=== PATIENT | male | born 1955 | race Caucasian/White ===

== ENCOUNTER 2017-11-05 10:48 | Inpatient (IN) | payer MEDICARE ==
[2017-11-05 11:14] LABS: CHLORIDE,CL 108 mEq/L (98-106); SODIUM,NA 141 mEq/L (136-145)
[2017-11-05] MEDS ORDERED: Temazepam 15 MG Cap PO PRN (13:11)
[2017-11-05] MEDS ORDERED: Acetaminophen 325 MG Tab PO PRN (13:11)
[2017-11-05] MEDS ORDERED: methylPREDNISolone Sodium Succinate 125 MG/2 ML SDV IVPUSH SCH (13:15)
[2017-11-05] MEDS: Sodium Chloride 0.9% 1,000 ML IV SCH (13:52)
[2017-11-05] MEDS: cefTRIAXone 1 GM Vial IVPUSH SCH (13:52)
[2017-11-05] MEDS: Carvedilol 3.125 MG Tab PO SCH (19:23)
[2017-11-05] MEDS: Citalopram 10 MG Tab PO SCH (19:23)
[2017-11-05] MEDS: Baclofen 10 MG Tab PO SCH (19:24)
[2017-11-06] MEDS: Sodium Chloride 0.9% 1,000 ML IV SCH ×2 (05:33→21:19)
[2017-11-06 07:22] LABS: CHLORIDE,CL 107 mEq/L (98-106); SODIUM,NA 139 mEq/L (136-145)
[2017-11-06] MEDS: Aspirin 81 MG Tab.EC PO SCH (07:31)
[2017-11-06] MEDS: atorvaSTATin 20 MG Tab PO SCH (07:31)
[2017-11-06] MEDS: Carvedilol 3.125 MG Tab PO SCH ×2 (07:31→19:46)
[2017-11-06] MEDS: Baclofen 10 MG Tab PO SCH ×2 (07:32→19:47)
[2017-11-06] MEDS: Clopidogrel 75 MG Tab PO SCH (07:32)
[2017-11-06] MEDS ORDERED: BIOTIN 300 MCG PO SCH (08:00)
--- NOTE | 2017-11-06 09:13 | PCM.PN ---
- General Info Date of Service: 11/06/17 Admission Dx/Problem (Free Text): Multiple Sclerosis Functional Status: Reports: Pain Controlled, Tolerating Diet, Ambulating - Review of Systems General: Reports: Weakness, Fatigue. Denies: Fever HEENT: Reports: No Symptoms Pulmonary: Denies: Shortness of Breath, Cough, Wheezing Cardiovascular: Denies: Chest Pain, Edema, Lightheadedness Gastrointestinal: Denies: Abdominal Pain, Nausea, Vomiting Genitourinary: Reports: No Symptoms Musculoskeletal: Reports: No Symptoms Skin: Reports: No Symptoms Neurological: Reports: Weakness Psychiatric: Reports: No Symptoms - Patient Data Vitals - Most Recent: Last Vital Signs Temp 98.7 F 11/06/17 07:24 Pulse 89 11/06/17 07:31 Resp 20 11/06/17 07:24 BP 119/57 L 11/06/17 07:24 Pulse Ox 94 L 11/06/17 07:24 Weight - Most Recent: 225 lb 12.8 oz I&O - Last 24 Hours: Intake & Output 11/05/17 11/06/17 11/06/17 22:59 06:59 14:59 Intake Total 1000 Balance 1000 Lab Results Last 24 Hours: Laboratory Results - last 24 hr 11/05/17 11/05/17 11/05/17 Range/Units 10:53 10:53 10:53 WBC 9.9 (5.0-10.0) 10^3/uL RBC 4.46 L (4.50-6.00) 10^6/uL Hgb 14.0 (14.0-18.0) g/dL Hct 41.2 (40.0-54.0) % MCV 92.4 (82.0-94.0) fL MCH 31.4 (27.0-32.0) pg MCHC 34.0 (33.0-38.0) g/dL RDW Coeff of Slava 13.4 (11.0-15.0) % Plt Count 249 (150-400) 10^3/uL Neut % (Auto) 68.5 (35-85) % Lymph % (Auto) 18.2 (10-55) % [place] % (Auto) 7.3 (0-16) % Eos % (Auto) 5.4 H (0-5) % Baso % (Auto) 0.6 (0-3) % Neut # (Auto) 6.80 (1.80-7.00) 10^3/uL Lymph # (Auto) 1.81 (1.00-4.80) 10^3/uL [place] # (Auto) 0.72 (0.00-0.80) 10^3/uL Eos # (Auto) 0.54 H (0.00-0.45) 10^3/uL Baso # (Auto) 0.06 10^3/uL ESR 16 H (0-15) mm/hr Sodium 141 (136-145) mEq/L Potassium 3.6 (3.5-5.0) mEq/L Chloride 108 H (98-106) mEq/L Carbon Dioxide 26 (21-32) mmol/L BUN 19 H (7-18) mg/dL Creatinine 0.9 (0.7-1.3) mg/dL Est Cr Clr Drug Dosing TNP Estimated GFR (MDRD) > 60 (>=60) mL/min Glucose 108 H (75-99) mg/dL Calcium 9.0 (8.4-10.1) mg/dL Creatine Kinase 50 (35-232) U/L Urine Color Yellow (YELLOW) Urine Appearance Clear (CLEAR) Urine pH 5.5 (4.5-8.0) Ur Specific [place] >= 1.030 H (1.003-1.020) Urine Protein Negative (NEGATIVE) mg/dL Urine Glucose (UA) Negative (NEGATIVE) mg/dL Urine Ketones Negative (NEGATIVE) mg/dL Urine Occult Blood Trace-lysed H (NEGATIVE) Urine Nitrite Negative (NEGATIVE) Urine Bilirubin Negative (NEGATIVE) Urine Urobilinogen 0.2 (0.2-1.0) EU/dL Ur Leukocyte Esterase Trace H (NEGATIVE) Urine RBC 0-5 (0-5) /HPF Urine WBC 0-5 (0-5) /HPF Ur Renal Epithelial Cell Occasional H (NOT SEEN) /HPF Urine Bacteria Occasional H (NOT SEEN) /HPF Urine Mucus Occasional H (NOT SEEN) /HPF 11/06/17 11/06/17 Range/Units 07:00 07:00 WBC 15.8 H (5.0-10.0) 10^3/uL RBC 4.21 L (4.50-6.00) 10^6/uL Hgb 13.2 L (14.0-18.0) g/dL Hct 38.8 L (40.0-54.0) % MCV 92.2 (82.0-94.0) fL MCH 31.4 (27.0-32.0) pg MCHC 34.0 (33.0-38.0) g/dL RDW Coeff of Slava 13.0 (11.0-15.0) % Plt Count 259 (150-400) 10^3/uL Neut % (Auto) 92.7 H (35-85) % Lymph % (Auto) 6.4 L (10-55) % [place] % (Auto) 0.8 (0-16) % Eos % (Auto) 0 (0-5) % Baso % (Auto) 0.1 (0-3) % Neut # (Auto) 14.69 H (1.80-7.00) 10^3/uL Lymph # (Auto) 1.01 (1.00-4.80) 10^3/uL [place] # (Auto) 0.13 (0.00-0.80) 10^3/uL Eos # (Auto) 0.00 (0.00-0.45) 10^3/uL Baso # (Auto) 0.01 10^3/uL ESR (0-15) mm/hr Sodium 139 (136-145) mEq/L Potassium 3.8 (3.5-5.0) mEq/L Chloride 107 H (98-106) mEq/L Carbon Dioxide 23 (21-32) mmol/L BUN 14 (7-18) mg/dL Creatinine 0.9 (0.7-1.3) mg/dL Est Cr Clr Drug Dosing 95.80 Estimated GFR (MDRD) > 60 (>=60) mL/min Glucose 173 H D (75-99) mg/dL Calcium 8.8 (8.4-10.1) mg/dL Creatine Kinase (35-232) U/L Urine Color (YELLOW) Urine Appearance (CLEAR) Urine pH (4.5-8.0) Ur Specific [place] (1.003-1.020) Urine Protein (NEGATIVE) mg/dL Urine Glucose (UA) (NEGATIVE) mg/dL Urine Ketones (NEGATIVE) mg/dL Urine Occult Blood (NEGATIVE) Urine Nitrite (NEGATIVE) Urine Bilirubin (NEGATIVE) Urine Urobilinogen (0.2-1.0) EU/dL Ur Leukocyte Esterase (NEGATIVE) Urine RBC (0-5) /HPF Urine WBC (0-5) /HPF Ur Renal Epithelial Cell (NOT SEEN) /HPF Urine Bacteria (NOT SEEN) /HPF Urine Mucus (NOT SEEN) /HPF Med Orders - Current: Current Medications Acetaminophen (Tylenol) 650 mg PO Q4H PRN PRN Reason: Pain (Mild 1-3)/fever Aspirin (Halfprin) 81 mg PO DAILY [facility] Last Admin: 11/06/17 07:31 Dose: 81 mg Atorvastatin Calcium (Lipitor) 80 mg PO DAILY [facility] Last Admin: 11/06/17 07:31 Dose: 80 mg Baclofen (Lioresal) 20 mg PO BID [facility] Last Admin: 11/06/17 07:32 Dose: 20 mg Carvedilol (Coreg) 3.125 mg PO BID [facility] Last Admin: 11/06/17 07:31 Dose: 3.125 mg Ceftriaxone Sodium (Rocephin) 1 gm IVPUSH Q24H [facility] Last Admin: 11/05/17 13:52 Dose: 1 gm Citalopram Hydrobromide (Celexa) 40 mg PO BEDTIME [facility] Last Admin: 11/05/17 19:23 Dose: 40 mg Clopidogrel Bisulfate (Plavix) 75 mg PO DAILY [facility] Last Admin: 11/06/17 07:32 Dose: 75 mg Sodium Chloride (Normal Saline) 1,000 mls @ 75 mls/hr IV ASDIRECTED [facility] Last Admin: 11/06/17 05:33 Dose: 75 mls/hr Methylprednisolone Sodium Succinate 1,000 mg/ Sodium Chloride 266 mls @ 125 mls /hr IV DAILY@1000 [facility] Stop: 11/07/17 15:01 Last Admin: 11/05/17 15:12 Dose: 125 mls/hr Non-Formulary Medication (Biotin [Biotin]) 300 mcg PO DAILY [facility] Temazepam (Restoril) 15 mg PO BEDTIME PRN PRN Reason: Sleep Discontinued Medications Methylprednisolone Sodium Succinate (Solu-Medrol) 1,000 mg IVPUSH Q24H [facility] Stop: 11/07/17 13:16 Last Admin: 11/05/17 14:57 Dose: Not Given - Exam General: Alert, Oriented HEENT: Mucous Membr. Moist/[place] Neck: Supple Lungs: Clear to Auscultation, Normal Respiratory Effort Cardiovascular: Regular Rate, Regular Rhythm GI/Abdominal Exam: Normal Bowel Sounds, Soft, Non-Tender Skin: Warm, Dry Neurological: No New Focal Deficit - Problem List & Annotations (1) Multiple sclerosis SNOMED Code(s): 93727395 Code(s): G35 - MULTIPLE SCLEROSIS Status: Acute Priority: High Current Visit: Yes - Problem List Review Problem List Initiated/Reviewed/Updated: Yes - Assessment Assessment:: Exacerbation of MS - Plan Plan:: Patient states is feeling much better after steroids. "able to move his arms and legs better now". Has not been on any meds for his MS for many years. States took for about 5 years and they did not feel they were helping him all that well. He is not interested really at this point of seeing neurology again for different options, states do not feel they were that beneficial and were very costly. Denies any other concerns. Labs on admit were negative, UA negative, except did show he was dehydrated. Has done well with IV fluids. Will continue with high dose steroids. IV fluids. PT eval today, encourage ambulation. Possible discharge in am.
[2017-11-06] MEDS: cefTRIAXone 1 GM Vial IVPUSH SCH (13:28)
[2017-11-06] MEDS: Citalopram 10 MG Tab PO SCH (19:45)
[2017-11-07] MEDS: Aspirin 81 MG Tab.EC PO SCH (07:31)
[2017-11-07] MEDS: Carvedilol 3.125 MG Tab PO SCH ×2 (07:31→20:22)
[2017-11-07] MEDS: atorvaSTATin 20 MG Tab PO SCH (07:32)
[2017-11-07] MEDS: Baclofen 10 MG Tab PO SCH ×2 (07:32→20:22)
[2017-11-07] MEDS: Clopidogrel 75 MG Tab PO SCH (07:33)
[2017-11-07] MEDS ORDERED: FLU Vacc QS 2017-18 (36mos UP)/PF 60 MCG/0.5 ML Syringe IM ONE (10:43)
--- NOTE | 2017-11-07 11:10 | PN ---
DATE: 11/07/2017 S: Mr. Win was admitted on Friday by Steven for an exacerbation of his MS. He has had 2 separate days of IV Solu-Medrol with wonderful results. He is much stronger. He is able to ambulate now, voiding and stooling without problem. There was a question of UTI and admit as well. Unfortunately, urine culture was never accomplished. His vitals have been stable since admission. He has been afebrile. O: GENERAL: He is pleasant and cooperative. He is vocalizing nicely. is present for the exam. HEENT: Grossly benign. NECK: Neck veins are flat. LUNGS: Sounds appear clear throughout. CARDIAC: Tones are regular. ABDOMEN: Soft, nontender. No peripheral edema is seen. ASSESSMENT: 1. EXACERBATION OF MS. 2. POSSIBLE URINARY TRACT INFECTION. P: Clinically, he looks very good, I am going to take him off IV fluids. We will continue him on Rocephin, as unfortunately, we did not get a urine culture and does state that a lot of times when he does get even a mild illness such as a bladder infection, he will have a marked flare up of his MS. We are contemplating swing bed tomorrow to help continue with strengthening and we will likely continue with IV Rocephin for a few more days until is comfortable with him at home. Family is present and they agree with the plan. KELECHI/ESTUARDO /[id number]
[2017-11-07] MEDS: cefTRIAXone 1 GM Vial IVPUSH SCH (12:59)
[2017-11-07] MEDS: Citalopram 10 MG Tab PO SCH (20:22)
[2017-11-08] MEDS: atorvaSTATin 20 MG Tab PO SCH (07:37)
[2017-11-08] MEDS: Baclofen 10 MG Tab PO SCH (07:38)
[2017-11-08] MEDS: Carvedilol 3.125 MG Tab PO SCH (07:38)
[2017-11-08] MEDS: Aspirin 81 MG Tab.EC PO SCH (07:38)
[2017-11-08] MEDS: Clopidogrel 75 MG Tab PO SCH (07:38)
[2017-11-08 11:40] VITALS: BP 114/60
--- NOTE | 2017-11-08 12:55 | PCM.DCSUM1 ---
Discharge Summary - Hospital Course HPI Initial Comments: Adrian is a 62 year old male who was admitted to the hospital from the clinic on 11/06/2017 for worsening of his multiple sclerosis. Prior to admission, he had fallen at home. At time of admission he was unable to ambulate or move his lower extremities. He was also having some urinary incontinence and felt he maybe had a UTI. He reported that whenever he has illness he has worsening of his MS. UA was positive, but unfortunately urine culture was not completed. Patient has improved on IV Rocephin. He was admitted for worsening of his MS and treated with 1G solumedrol x 3 doses. His weakness has improved greatly. He will be discharged to [facility] for continued physical therapy and strengthening. At time of discharge, he feels he is back to his baseline. He has been up ambulating in the halls. Reports he is feeling much better, but that he would still benefit from some continued therapy. - Discharge Data Discharge Date: 11/08/17 Discharge Disposition: DC/Tfer W/I Hosp To [place] [id number] Condition: Good - Discharge Diagnosis/Problem(s) (1) Multiple sclerosis SNOMED Code(s): 17367612 ICD Code: G35 - MULTIPLE SCLEROSIS Status: Chronic Priority: High - Patient Summary/Data Consults: Consultations 11/05/17 13:11 PT Evaluation and Treatment [CONS] Routine - Patient Instructions Diet: Regular Diet as Tolerated Activity: As Tolerated - Discharge Plan Home Medications: Home Meds Baclofen [Lioresal] 20 mg PO BID 12/29/15 [History] Aspirin [Halfprin] 81 mg PO DAILY 01/15/16 [History] Carvedilol [Coreg] 3.125 mg PO BID 01/15/16 [History] Clopidogrel [Plavix] 75 mg PO DAILY 01/15/16 [History] Escitalopram [Lexapro] 20 mg PO BEDTIME 01/15/16 [History] atorvaSTATin Calcium [Atorvastatin Calcium] 80 mg PO BEDTIME 01/15/16 [History] Biotin 300 mcg PO DAILY 11/05/17 [History] Cholecalciferol (Vitamin D3) [Vitamin D3] 5,000 units PO BEDTIME 11/05/17 [ History] Patient Handouts: Multiple Sclerosis - General Info Date of Service: 11/08/17 Admission Dx/Problem (Free Text: Multiple Sclerosis Subjective Update: Patient reports he is feeling much better after the steroids and antibiotics. He has been up ambulating. Does feel he is still a little weak and would benefit from more physical therapy. Did have an episode of nausea, diarrhea, and vomiting last evening. He feels this was related to intake of "red dye in a valent[employer] candy." He reports he is allergic to red dyes. Reports he is feeling better this morning. Functional Status: Reports: Pain Controlled, Tolerating Diet, Ambulating, Urinating. Denies: New Symptoms - Review of Systems General: Reports: Weakness. Denies: Fever, Fatigue, Chills HEENT: Reports: No Symptoms Pulmonary: Reports: No Symptoms. Denies: Shortness of Breath Cardiovascular: Reports: No Symptoms. Denies: Chest Pain Gastrointestinal: Reports: No Symptoms. Denies: Abdominal Pain, Diarrhea, Nausea, Vomiting Genitourinary: Reports: Incontinence Musculoskeletal: Reports: No Symptoms. Denies: Leg Pain Skin: Reports: No Symptoms Neurological: Reports: No Symptoms Psychiatric: Reports: No Symptoms - Patient Data Vitals - Most Recent: Last Vital Signs Temp 97.1 F 11/08/17 11:38 Pulse 68 11/08/17 11:38 Resp 17 11/08/17 11:38 BP 114/60 11/08/17 11:38 Pulse Ox 98 11/08/17 11:38 Weight - Most Recent: 225 lb 12.8 oz Lab Results - Last 24 hrs: Laboratory Results - last 24 hr 11/08/17 11/08/17 Range/Units 07:10 07:25 WBC 20.9 H* (5.0-10.0) 10^3/uL RBC 3.93 L (4.50-6.00) 10^6/uL Hgb 12.5 L (14.0-18.0) g/dL Hct 38.1 L (40.0-54.0) % MCV 96.9 H (82.0-94.0) fL MCH 31.8 (27.0-32.0) pg MCHC 32.8 L (33.0-38.0) g/dL RDW Coeff of Slava 13.4 (11.0-15.0) % Plt Count 270 (150-400) 10^3/uL Add Manual Diff Yes Neutrophils % (Manual) 94 H (35-85) % Lymphocytes % (Manual) 3 L (21-55) % Monocytes % (Manual) 3 (2-12) % Absolute Neutrophils 19.65 H (1.80-7.00) 10^3/uL Lymphocytes # (Manual) 0.63 L (1.00-4.80) 10^3/uL Monocytes # (Manual) 0.63 (0.00-0.80) 10^3/uL C-Reactive Protein < 0.2 L (0.2-0.8) mg/dL Med Orders - Current: Current Medications Acetaminophen (Tylenol) 650 mg PO Q4H PRN PRN Reason: Pain (Mild 1-3)/fever Aspirin (Halfprin) 81 mg PO DAILY [facility] Last Admin: 11/08/17 07:38 Dose: 81 mg Atorvastatin Calcium (Lipitor) 80 mg PO DAILY [facility] Last Admin: 11/08/17 07:37 Dose: 80 mg Baclofen (Lioresal) 20 mg PO BID [facility] Last Admin: 11/08/17 07:38 Dose: 20 mg Carvedilol (Coreg) 3.125 mg PO BID [facility] Last Admin: 11/08/17 07:38 Dose: 3.125 mg Ceftriaxone Sodium (Rocephin) 1 gm IVPUSH Q24H [facility] Last Admin: 11/07/17 12:59 Dose: 1 gm Citalopram Hydrobromide (Celexa) 40 mg PO BEDTIME [facility] Last Admin: 11/07/17 20:22 Dose: 40 mg Clopidogrel Bisulfate (Plavix) 75 mg PO DAILY [facility] Last Admin: 11/08/17 07:38 Dose: 75 mg Non-Formulary Medication (Biotin [Biotin]) 300 mcg PO DAILY [facility] Temazepam (Restoril) 15 mg PO BEDTIME PRN PRN Reason: Sleep Discontinued Medications Sodium Chloride (Normal Saline) 1,000 mls @ 75 mls/hr IV ASDIRECTED [facility] Last Admin: 11/06/17 21:19 Dose: 75 mls/hr Methylprednisolone Sodium Succinate 1,000 mg/ Sodium Chloride 266 mls @ 125 mls /hr IV DAILY@1000 [facility] Stop: 11/07/17 15:01 Last Admin: 11/07/17 09:49 Dose: 125 mls/hr Influenza Virus Vaccine (Fluzone Quad 5870-1941) 60 mcg IM .ONCE ONE Stop: 11/07/17 10:44 Last Admin: 11/07/17 11:16 Dose: 60 mcg Methylprednisolone Sodium Succinate (Solu-Medrol) 1,000 mg IVPUSH Q24H [facility] Stop: 11/07/17 13:16 Last Admin: 11/05/17 14:57 Dose: Not Given - Exam General: Reports: Alert, Oriented, No Acute Distress Neck: Reports: Supple Lungs: Reports: Clear to Auscultation, Normal Respiratory Effort Cardiovascular: Reports: Regular Rate, Regular Rhythm Extremities: Normal Inspection, Normal Range of Motion, Non-Tender, No Pedal Edema, Normal Capillary Refill Neurological: Reports: No New Focal Deficit Psy/Mental Status: Reports: Alert, Normal Affect, Normal Mood *Q Meaningful Use (DIS) - VTE *Q VTE Criteria *Q: - Stroke *Q Stroke Criteria *Q: - AMI *Q AMI Criteria *Q:
== END 2017-11-08 12:54 | disposition swing bed (61) | DRG 59 ==
LOC: CC.FCMC 10:48 → CC.MS 10:48 → UNDOADMIN 12:06 → CC.MS 13:12
PROVIDERS: ADMIT Physician Assistant Medical; ATTEND Family Medicine
PROC: 3E0234Z Introduction of Serum, Toxoid and Vaccine into Muscle, Percutaneous Approach (ICD-10-PCS; principal; 2017-11-07)
DX: G35 Multiple sclerosis (principal); N39.0 Urinary tract infection, site not specified; R53.1 Weakness; F17.210 Nicotine dependence, cigarettes, uncomplicated; N40.0 Benign prostatic hyperplasia without lower urinary tract symptoms; I25.10 Atherosclerotic heart disease of native coronary artery without angina pectoris; Z98.61 Coronary angioplasty status; Z79.82 Long term (current) use of aspirin; Z79.899 Other long term (current) drug therapy; W19.XXXA Unspecified fall, initial encounter; Z23 Encounter for immunization
CPT/HCPCS: 36415; 80048; 81001; 82550; 85025; 85651; 86140; 90686; 97110-GP; 97116-GP; 97161-GP; 97530-GP; A9270-GY; G0008; J0696; J2930; J7030; J7050

== ENCOUNTER 2017-11-08 13:14 | Inpatient (IN) | payer MEDICARE ==
[2017-11-08] MEDS ORDERED: Temazepam 15 MG Cap PO PRN (14:16)
[2017-11-08] MEDS ORDERED: Acetaminophen 325 MG Tab PO PRN (14:16)
[2017-11-08] MEDS: Citalopram 10 MG Tab PO SCH (20:19)
[2017-11-08] MEDS: Carvedilol 3.125 MG Tab PO SCH (20:19)
[2017-11-08] MEDS: Baclofen 10 MG Tab PO SCH (20:19)
[2017-11-09] MEDS: atorvaSTATin 20 MG Tab PO SCH (07:53)
[2017-11-09] MEDS: Clopidogrel 75 MG Tab PO SCH (07:53)
[2017-11-09] MEDS: Carvedilol 3.125 MG Tab PO SCH ×2 (07:53→19:30)
[2017-11-09] MEDS: Baclofen 10 MG Tab PO SCH ×2 (07:53→19:30)
[2017-11-09] MEDS: Aspirin 81 MG Tab.EC PO SCH (07:53)
[2017-11-09] MEDS ORDERED: BIOTIN 300 MCG PO SCH (08:00)
[2017-11-09] MEDS: cefTRIAXone 1 GM Vial IVPUSH SCH (13:11)
[2017-11-09] MEDS: Citalopram 10 MG Tab PO SCH (19:30)
[2017-11-10 07:16] VITALS: BP 127/81
[2017-11-10] MEDS: Baclofen 10 MG Tab PO SCH (07:45)
[2017-11-10] MEDS: atorvaSTATin 20 MG Tab PO SCH (07:46)
[2017-11-10 07:47] LABS: CHLORIDE,CL 106 mEq/L (98-106); SODIUM,NA 139 mEq/L (136-145)
[2017-11-10] MEDS: Aspirin 81 MG Tab.EC PO SCH (07:47)
[2017-11-10] MEDS: Clopidogrel 75 MG Tab PO SCH (07:47)
[2017-11-10] MEDS: Carvedilol 3.125 MG Tab PO SCH (07:48)
[2017-11-10] MEDS: cefTRIAXone 1 GM Vial IVPUSH SCH (13:29)
--- NOTE | 2017-11-10 21:54 | PCM.DCSUM1 ---
Discharge Summary - Hospital Course Free Text/Narrative:: Patient presented to clinic with increased weakness and MS flare. Patient was unable to ambulate or move his lower extremities. He has not been on meds for his MS for many years as patient reports they did not provide much benefit. He has had increased issues when dealing with infections, felt he may have a UTI on admit. Unfortunately urine culture was not completed but was treated with Rocephin at time of acute admit. Was given 3 dose of IV dose IV steroids and had improvement of the weakness and movement. Transferred to swing bed for ongoing physical therapy for his weakness and Rocephin for UTI. - Discharge Data Discharge Date: 11/10/17 Discharge Disposition: Home, W Home Health Agency 06 Condition: Fair - Patient Summary/Data Complications: none Consults: Consultations 11/08/17 14:16 PT Evaluation and Treatment [CONS] Routine Hospital Course: Patient was admitted to swing bed for ongoing physical therapy due to weakness. MS has improved due to steroids. Patient is up and ambulating short distances , feels he is much improved. UTI has been covered with IV Rocephin. Labs stable. Will discharge home with to provide assistance as needed. - Patient Instructions Diet: Usual Diet as Tolerated Activity: As Tolerated - Discharge Plan Home Medications: Home Meds Baclofen [Lioresal] 20 mg PO BID 12/29/15 [History] Aspirin [Halfprin] 81 mg PO DAILY 01/15/16 [History] Carvedilol [Coreg] 3.125 mg PO BID 01/15/16 [History] Clopidogrel [Plavix] 75 mg PO DAILY 01/15/16 [History] Escitalopram [Lexapro] 20 mg PO BEDTIME 01/15/16 [History] atorvaSTATin Calcium [Atorvastatin Calcium] 80 mg PO BEDTIME 01/15/16 [History] Biotin 300 mcg PO DAILY 11/05/17 [History] Cholecalciferol (Vitamin D3) [Vitamin D3] 5,000 units PO BEDTIME 11/05/17 [ History] Referrals: Arnulfo Manzano MD [Primary Care Provider] - (Follow up in [address] Manzano) - Discharge Summary/Plan Comment DC Time >30 min.: No Discharge Summary/Plan Comment: Discharge home. Follow up with Dr. Manzano in 2 weeks. - General Info Date of Service: 11/10/17 Admission Dx/Problem (Free Text: Multiple sclerosis Functional Status: Reports: Pain Controlled, Tolerating Diet, Ambulating - Review of Systems General: Reports: Weakness. Denies: Fever, Fatigue HEENT: Reports: No Symptoms Pulmonary: Denies: Shortness of Breath, Cough, Sputum Cardiovascular: Denies: Chest Pain, Edema, Lightheadedness Gastrointestinal: Denies: Abdominal Pain, Nausea, Vomiting Genitourinary: Reports: No Symptoms Musculoskeletal: Reports: No Symptoms Skin: Reports: No Symptoms Neurological: Reports: Weakness - Patient Data Vitals - Most Recent: Last Vital Signs Temp 97.3 F 11/10/17 07:16 Pulse 62 11/10/17 07:48 Resp 16 11/10/17 07:16 BP 127/81 11/10/17 07:48 Pulse Ox 97 11/10/17 07:16 Weight - Most Recent: 241 lb Lab Results - Last 24 hrs: Laboratory Results - last 24 hr 11/10/17 11/10/17 Range/Units 07:00 07:00 WBC 14.1 H (5.0-10.0) 10^3/uL RBC 4.44 L (4.50-6.00) 10^6/uL Hgb 13.9 L (14.0-18.0) g/dL Hct 42.2 (40.0-54.0) % MCV 95.0 H (82.0-94.0) fL MCH 31.3 (27.0-32.0) pg MCHC 32.9 L (33.0-38.0) g/dL RDW Coeff of [place]ava 13.4 (11.0-15.0) % Plt Count 265 (150-400) 10^3/uL Neut % (Auto) 68.6 (35-85) % Lymph % (Auto) 18.2 (10-55) % [place] % (Auto) 8.8 (0-16) % Eos % (Auto) 4.3 (0-5) % Baso % (Auto) 0.1 (0-3) % Neut # (Auto) 9.64 H (1.80-7.00) 10^3/uL Lymph # (Auto) 2.56 (1.00-4.80) 10^3/uL [place] # (Auto) 1.23 H (0.00-0.80) 10^3/uL Eos # (Auto) 0.61 H (0.00-0.45) 10^3/uL Baso # (Auto) 0.01 10^3/uL Sodium 139 (136-145) mEq/L Potassium 3.3 L (3.5-5.0) mEq/L Chloride 106 (98-106) mEq/L Carbon Dioxide 28 (21-32) mmol/L BUN 19 H (7-18) mg/dL Creatinine 0.9 (0.7-1.3) mg/dL Est Cr Clr Drug Dosing 95.80 mL/min Estimated GFR (MDRD) > 60 (>=60) mL/min Glucose 88 D (75-99) mg/dL Calcium 8.5 (8.4-10.1) mg/dL Med Orders - Current: Current Medications Discontinued Medications Acetaminophen (Tylenol) 650 mg PO Q4H PRN PRN Reason: Pain (Mild 1-3)/fever Aspirin (Halfprin) 81 mg PO DAILY [facility] Last Admin: 11/10/17 07:47 Dose: 81 mg Atorvastatin Calcium (Lipitor) 80 mg PO DAILY [facility] Last Admin: 11/10/17 07:46 Dose: 80 mg Baclofen (Lioresal) 20 mg PO BID [facility] Last Admin: 11/10/17 07:45 Dose: 20 mg Carvedilol (Coreg) 3.125 mg PO BID [facility] Last Admin: 11/10/17 07:48 Dose: 3.125 mg Ceftriaxone Sodium (Rocephin) 1 gm IVPUSH Q24H [facility] Last Admin: 11/10/17 13:29 Dose: 1 gm Citalopram Hydrobromide (Celexa) 40 mg PO BEDTIME [facility] Last Admin: 11/09/17 19:30 Dose: 40 mg Clopidogrel Bisulfate (Plavix) 75 mg PO DAILY [facility] Last Admin: 11/10/17 07:47 Dose: 75 mg Non-Formulary Medication (Biotin [Biotin]) 300 mcg PO DAILY [facility] Temazepam (Restoril) 15 mg PO BEDTIME PRN PRN Reason: Sleep - Exam General: Reports: Alert, Oriented HEENT: Reports: Mucous Membr. Moist/[place] Neck: Reports: Supple Lungs: Reports: Clear to Auscultation, Normal Respiratory Effort Cardiovascular: Reports: Regular Rate, Regular Rhythm GI/Abdominal Exam: Normal Bowel Sounds, Soft, Non-Tender Extremities: Normal Inspection, No Pedal Edema Skin: Reports: Warm, Dry Neurological: Reports: No New Focal Deficit *Q Meaningful Use (DIS) - VTE *Q VTE Criteria *Q: - Stroke *Q Stroke Criteria *Q: - AMI *Q AMI Criteria *Q:
== END 2017-11-10 17:15 | disposition home health service (06) | DRG 948 ==
LOC: CC.MS 13:14 → UNDOADMIN 13:14 → CC.MS 14:16
PROVIDERS: ADMIT Nurse Practitioner Family; ATTEND Family Medicine
DX: R53.1 Weakness (principal); N39.0 Urinary tract infection, site not specified; G35 Multiple sclerosis; R32 Unspecified urinary incontinence; N40.0 Benign prostatic hyperplasia without lower urinary tract symptoms; I25.10 Atherosclerotic heart disease of native coronary artery without angina pectoris; Z98.61 Coronary angioplasty status; F17.210 Nicotine dependence, cigarettes, uncomplicated; Z79.82 Long term (current) use of aspirin; Z79.899 Other long term (current) drug therapy
CPT/HCPCS: 36415; 80048; 85025; 97110-GP; A9270-GY; J0696

== ENCOUNTER 2018-02-16 17:10 | Emergency (ER) | payer MEDICARE ==
[2018-02-16 17:24] VITALS: BP 124/83
[2018-02-16 17:53] LABS: CHLORIDE,CL 105 mEq/L (98-106); SODIUM,NA 139 mEq/L (136-145)
--- NOTE | 2018-02-16 17:54 | EDM.PDOC ---
ED HPI GENERAL MEDICAL PROBLEM - General Chief Complaint: General Stated Complaint: WEAKNESS Time Seen by Provider: 02/16/18 17:35 Source of Information: Reports: Patient, Family History Limitations: Reports: No Limitations - History of Present Illness INITIAL COMMENTS - FREE TEXT/NARRATIVE: Adrian is a 62 year old male with PMH of multiple sclerosis and HTN who presents to the ED with c/o generalized weakness, headache, and dizziness. He reports he did fall last week. Denies hitting his head. He reports that he has had the headache for about a week now. Reports the dizziness seemed to worsen this afternoon. He reports that he just overall isn't feeling well. He did report that on the drive in he got nauseated and did have small emesis x1. He denies any headache or nausea at time of presentation. Denies any chest pain, cough, shortness of breath, dysuria, abdominal pain, constpation, diarrhea, fever, chills, vertigo, confusion. He saw Dr. Manzano on 02/12 to be checked for UTI, as his MS often worsens when he is ill. UA at that time was negative. He does report that he has issues with emptying his bladder. He reports that it feels like he is having an exacerbation of his MS. Reports he normally responds well to steroids when this happens. - Related Data Allergies Allergy/AdvReac Type Severity Reaction Status Date / Time red dye Allergy Change Verified 02/16/18 17:25 Mental Status Home Meds: Home Meds Baclofen [Lioresal] 20 mg PO BID 12/29/15 [History] Aspirin [Halfprin] 81 mg PO DAILY 01/15/16 [History] Carvedilol [Coreg] 3.125 mg PO BID 01/15/16 [History] Clopidogrel [Plavix] 75 mg PO DAILY 01/15/16 [History] Escitalopram [Lexapro] 20 mg PO BEDTIME 01/15/16 [History] atorvaSTATin Calcium [Atorvastatin Calcium] 80 mg PO BEDTIME 01/15/16 [History] Biotin 300 mcg PO DAILY 11/05/17 [History] Cholecalciferol (Vitamin D3) [Vitamin D3] 5,000 units PO BEDTIME 11/05/17 [ History] Acetaminophen [Tylenol Extra Strength] 1,000 mg PO ASDIRECTED PRN 02/16/18 [ History] Prednisone [IMW: predniSONE] 40 mg PO WITHBREAKFAST 5 Days #10 tab 02/16/18 [Rx] Past Medical History HEENT History: Reports: Impaired Vision Other HEENT History: GLASSES Cardiovascular History: Reports: [place], Stents Respiratory History: Reports: None Other Musculoskeletal History: MS Neurological History: Reports: MS Psychiatric History: Reports: Depression - Past Surgical History GI Surgical History: Reports: Hernia, Inguinal Male Surgical History: Reports: Vasectomy Social & Family History - Tobacco Use Smoking Status *Q: Former Smoker Years of Tobacco use: 20 Packs/Tins Daily: 1 Used Tobacco, but Quit: Yes Month/Year Tobacco Last Used: 09/2017 - Caffeine Use Caffeine Use: Reports: Soda - Recreational Drug Use Recreational Drug Use: No ED ROS GENERAL - Review of Systems Review Of Systems: See Below Constitutional: Reports: Weakness, Fatigue, Decreased Appetite. Denies: Fever Respiratory: Denies: Shortness of Breath, Pleuritic Chest Pain, Cough, Sputum Cardiovascular: Reports: Lightheadedness. Denies: Chest Pain, Dyspnea on Exertion, Syncope Endocrine: Reports: Fatigue GI/Abdominal: Reports: Decreased Appetite, Nausea, Vomiting. Denies: Abdominal Pain, Constipation, Diarrhea, Hematemesis, Hematochezia, Melena : Reports: Frequency, Incontinence. Denies: Dysuria, Urgency Skin: Reports: No Symptoms Neurological: Reports: Dizziness, Headache, Pre-Existing Deficit, Difficulty Walking, Weakness. Denies: Confusion, Numbness, Tingling Psychiatric: Reports: Depression ED EXAM, GENERAL - Physical Exam Exam: See Below Exam Limited By: No Limitations General Appearance: Alert, WD/WN, No Apparent Distress Eye Exam: Bilateral Eye: EOMI, PERRL Head: Atraumatic, Normocephalic Neck: Normal Inspection, Supple, Non-Tender, Full Range of Motion Respiratory/Chest: No Respiratory Distress, Lungs Clear, Normal Breath Sounds, No Accessory Muscle Use, Chest Non-Tender Cardiovascular: Normal Peripheral Pulses, Regular Rate, Rhythm, No Edema, No Gallop, No JVD, No Murmur, No Rub GI/Abdominal: Normal Bowel Sounds, Soft, Non-Tender, No Organomegaly, No Distention, No Abnormal Bruit, No Mass Back Exam: Normal Inspection, Full Range of Motion. No: CVA Tenderness (L), CVA Tenderness (R) Extremities: Normal Inspection, Normal Range of Motion, Non-Tender, No Pedal Edema, Normal Capillary Refill, Other (severe ataxia to BLE & BUE) Neurological: Alert, Oriented, CN II-XII Intact, Normal Cognition, Abnormal Gait , Abnormal Reflexes, Sensory/Motor Deficit, Other (slurred speech) Psychiatric: Depressed Mood Skin Exam: Warm, Dry, Intact, Normal Color, No Rash Lymphatic: No Adenopathy Course - Vital Signs Last Recorded V/S: Last Vital Signs Temp 97.4 F 02/16/18 17:13 Pulse 77 02/16/18 17:13 Resp 16 02/16/18 17:13 BP 124/83 02/16/18 17:13 Pulse Ox 93 L 02/16/18 17:13 - Orders/Labs/Meds Orders: Active Orders 24 hr Category Date Time Status UA W/MICROSCOPIC [URIN] Stat Lab 02/16/18 17:27 Ordered Sodium Chloride 0.9% [Normal Saline] 1,000 ml Med 02/16/18 17:54 Active IV .BOLUS Sodium Chloride 0.9% [Saline Flush] Med 02/16/18 17:57 Active 10 ml FLUSH ASDIRECTED PRN methylPREDNISolone Sod Succ [Solu-MEDROL] Med 02/16/18 18:00 Active 125 mg IVPUSH STAT Saline Lock Insert [OM.PC] Routine Oth 02/16/18 17:57 Ordered Medication Orders Sodium Chloride (Normal Saline) 1,000 mls @ 999 mls/hr IV .BOLUS ONE Stop: 02/16/18 18:54 Methylprednisolone Sodium Succinate (Solu-Medrol) 125 mg IVPUSH STAT DANIEL Sodium Chloride (Saline Flush) 10 ml FLUSH ASDIRECTED PRN PRN Reason: Keep Vein Open Labs: Laboratory Tests 02/16/18 02/16/18 02/16/18 Range/Units 17:27 17:30 17:30 WBC 12.0 H (5.0-10.0) 10^3/uL RBC 4.61 (4.50-6.00) 10^6/uL Hgb 14.5 (14.0-18.0) g/dL Hct 43.5 (40.0-54.0) % MCV 94.4 H (82.0-94.0) fL MCH 31.5 (27.0-32.0) pg MCHC 33.3 (33.0-38.0) g/dL RDW Coeff of [place]ava 13.2 (11.0-15.0) % Plt Count 221 (150-400) 10^3/uL Neut % (Auto) 84.0 (35-85) % Lymph % (Auto) 5.9 L (10-55) % [place] % (Auto) 7.7 (0-16) % Eos % (Auto) 2.2 (0-5) % Baso % (Auto) 0.2 (0-3) % Neut # (Auto) 10.05 H (1.80-7.00) 10^3/uL Lymph # (Auto) 0.71 L (1.00-4.80) 10^3/uL [place] # (Auto) 0.92 H (0.00-0.80) 10^3/uL Eos # (Auto) 0.26 (0.00-0.45) 10^3/uL Baso # (Auto) 0.02 10^3/uL Sodium (136-145) mEq/L Potassium (3.5-5.0) mEq/L Chloride (98-106) mEq/L Carbon Dioxide (21-32) mmol/L BUN (7-18) mg/dL Creatinine (0.7-1.3) mg/dL Est Cr Clr Drug Dosing mL/min Estimated GFR (MDRD) (>=60) mL/min Glucose (75-99) mg/dL Calcium (8.4-10.1) mg/dL Total Bilirubin (0.0-1.0) mg/dL AST (15-37) U/L ALT (12-78) U/L Alkaline Phosphatase (46-116) U/L Creatine Kinase (35-232) U/L C-Reactive Protein 2.3 H (0.2-0.8) mg/dL Total Protein (6.4-8.2) g/dL Albumin (3.4-5.0) g/dL Urine Color Yellow (YELLOW) Urine Appearance Clear (CLEAR) Urine pH 7.0 (4.5-8.0) Ur Specific [place] 1.020 (1.003-1.020) Urine Protein Negative (NEGATIVE) mg/dL Urine Glucose (UA) Negative (NEGATIVE) mg/dL Urine Ketones Negative (NEGATIVE) mg/dL Urine Occult Blood Trace-intact H (NEGATIVE) Urine Nitrite Negative (NEGATIVE) Urine Bilirubin Negative (NEGATIVE) Urine Urobilinogen 0.2 (0.2-1.0) EU/dL Ur Leukocyte Esterase Negative (NEGATIVE) Urine RBC 0-5 (0-5) /HPF Urine WBC Not seen (0-5) /HPF Ur Squamous Epith Cells Few H (NOT SEEN) /HPF 02/16/ Range/Units 17:30 WBC (5.0-10.0) 10^3/uL RBC (4.50-6.00) 10^6/uL Hgb (14.0-18.0) g/dL Hct (40.0-54.0) % MCV (82.0-94.0) fL MCH (27.0-32.0) pg MCHC (33.0-38.0) g/dL RDW Coeff of [place] (11.0-15.0) % Plt Count (150-400) 10^3/uL Neut % (Auto) (35-85) % Lymph % (Auto) (10-55) % [place] % (Auto) (0-16) % Eos % (Auto) (0-5) % Baso % (Auto) (0-3) % Neut # (Auto) (1.80-7.00) 10^3/uL Lymph # (Auto) (1.00-4.80) 10^3/uL [place] # (Auto) (0.00-0.80) 10^3/uL Eos # (Auto) (0.00-0.45) 10^3/uL Baso # (Auto) 10^3/uL Sodium 139 (136-145) mEq/L Potassium 3.9 (3.5-5.0) mEq/L Chloride 105 (98-106) mEq/L Carbon Dioxide 28 (21-32) mmol/L BUN 15 (7-18) mg/dL Creatinine 0.9 (0.7-1.3) mg/dL Est Cr Clr Drug Dosing 95.80 mL/min Estimated GFR (MDRD) > 60 (>=60) mL/min Glucose 131 H D (75-99) mg/dL Calcium 8.5 (8.4-10.1) mg/dL Total Bilirubin 2.1 H (0.0-1.0) mg/dL AST 23 (15-37) U/L ALT 32 (12-78) U/L Alkaline Phosphatase 113 (46-116) U/L Creatine Kinase 54 (35-232) U/L C-Reactive Protein (0.2-0.8) mg/dL Total Protein 6.3 L (6.4-8.2) g/dL Albumin 3.1 L (3.4-5.0) g/dL Urine Color (YELLOW) Urine Appearance (CLEAR) Urine pH (4.5-8.0) Ur Specific [place] (1.003-1.020) Urine Protein (NEGATIVE) mg/dL Urine Glucose (UA) (NEGATIVE) mg/dL Urine Ketones (NEGATIVE) mg/dL Urine Occult Blood (NEGATIVE) Urine Nitrite (NEGATIVE) Urine Bilirubin (NEGATIVE) Urine Urobilinogen (0.2-1.0) EU/dL Ur Leukocyte Esterase (NEGATIVE) Urine RBC (0-5) /HPF Urine WBC (0-5) /HPF Ur Squamous Epith Cells (NOT SEEN) /HPF Meds: Medications Generic Name Dose Route Start Last Admin Trade Name Freq PRN Reason Stop Dose Admin Sodium Chloride 1,000 mls @ 999 mls/hr 02/16/18 17:54 Normal Saline IV 02/16/18 18:54 .BOLUS ONE Methylprednisolone Sodium Succinate 125 mg 02/16/18 18:00 Solu-Medrol IVPUSH STAT DANIEL Sodium Chloride 10 ml 02/16/18 17:57 Saline Flush FLUSH ASDIRECTED PRN Keep Vein Open Discontinued Medications Generic Name Dose Route Start Last Admin Trade Name Freq PRN Reason Stop Dose Admin Ceftriaxone Sodium 1 gm 02/16/18 18:27 Rocephin IVPUSH 02/16/18 18:28 ONETIME ONE - Re-Assessments/Exams Free Text/Narrative Re-Assessment/Exam: 02/16/18 18:54 Patient does not want head CT. Labs all stable. UA negative. Discussed with patient and . Patient reports he is feeling much better after fluids. Denies any dizziness or headache. He does not want to be admitted. He wishes to go home. He feels that he can manage at home. Departure - Departure Time of Disposition: 18:56 Disposition: Home, Self-Care 01 Condition: Fair Clinical Impression: Exacerbation of multiple sclerosis, Gastroenteritis - Discharge Information Instructions: Multiple Sclerosis Referrals: Arnulfo Manzano MD [Primary Care Provider] - Forms: ED Department Discharge Additional Instructions: 1) Prednisone 40 mg daily x 5 days. Take with food. Script sent to [facility] 2) Tylenol or ibuprofen as needed for headache 3) Push fluids 4) Follow up with Dr. Manzano later this week, sooner if symptoms worsen or do not improve - My Orders Last 24 Hours: My Active Orders 02/16/18 17:27 UA W/MICROSCOPIC [URIN] Stat 02/16/18 17:54 Sodium Chloride 0.9% [Normal Saline] 1,000 ml IV .BOLUS 02/16/18 17:57 Sodium Chloride 0.9% [Saline Flush] 10 ml FLUSH ASDIRECTED PRN Saline Lock Insert [OM.PC] Routine 02/16/18 18:00 methylPREDNISolone Sod Succ [Solu-MEDROL] 125 mg IVPUSH STAT - Assessment/Plan Last 24 Hours: My Active Orders 02/16/18 17:27 UA W/MICROSCOPIC [URIN] Stat 02/16/18 17:54 Sodium Chloride 0.9% [Normal Saline] 1,000 ml IV .BOLUS 02/16/18 17:57 Sodium Chloride 0.9% [Saline Flush] 10 ml FLUSH ASDIRECTED PRN Saline Lock Insert [OM.PC] Routine 02/16/18 18:00 methylPREDNISolone Sod Succ [Solu-MEDROL] 125 mg IVPUSH STAT
[2018-02-16] MEDS ORDERED: Sodium Chloride 0.9% 10 ML Syringe FLUSH PRN (17:57)
[2018-02-16] MEDS: Sodium Chloride 0.9% 1,000 ML IV ONE (18:27)
[2018-02-16] MEDS: methylPREDNISolone Sodium Succinate 125 MG/2 ML SDV IVPUSH SCH (18:37)
[2018-02-16] MEDS: cefTRIAXone 1 GM Vial IVPUSH ONE (18:38)
== END 2018-02-16 19:35 | disposition home or self-care (01) ==
LOC: CC.ED 17:10
DX: G35 Multiple sclerosis (principal); K52.9 Noninfective gastroenteritis and colitis, unspecified; I10 Essential (primary) hypertension; Z91.048 Other nonmedicinal substance allergy status; Z79.82 Long term (current) use of aspirin; Z79.899 Other long term (current) drug therapy; Z87.891 Personal history of nicotine dependence
CPT/HCPCS: 36415; 80053; 81001; 82550; 85025; 86140; 96361; 96374; 96375; 99284; J0696; J2930; J7030

== ENCOUNTER 2018-07-05 21:13 | Inpatient (IN) | payer MEDICARE, OTHER ==
--- NOTE | 2018-07-05 21:30 | EDM.PDOC ---
ED HPI GENERAL MEDICAL PROBLEM - General Chief Complaint: General Stated Complaint: WEAKNESS,COLD Time Seen by Provider: 07/05/18 21:15 Source of Information: Reports: Patient, Family History Limitations: Reports: Other (patient very weak and drowsy) - History of Present Illness INITIAL COMMENTS - FREE TEXT/NARRATIVE: Patient presents with for concerns with weakness and chills. relates he had prostate surgery a week ago and was in the [facility] for 3 days and discharged home. She states he has been very weak since surgery. Not voiding well. Has a suprapubic catheter in but is encouraged to void first if able to "retrain his bladder". He has been struggling with that. Up until this afternoon, she relates he has been eating and drinking well. She states he started complaining of feeling chills earlier today and was unable to get relief from that with extra blankets. She was giving him some water at home and he started coughing and she is worried about aspiration. He states he does feel somewhat short of breath. Mild abdominal discomfort. Legs are very weak, required 3 assist for transfers to get him to the vehicle at home. Onset: Gradual Duration: Day(s):, Getting Worse Location: Reports: Generalized Quality: Reports: Ache, Dull Severity: Moderate Context: Reports: Other (recent surgery) Associated Symptoms: Reports: Cough, Fever/Chills, Shortness of Breath, Weakness. Denies: Confusion, Chest Pain, Diaphoresis, Loss of Appetite, Nausea/ Vomiting - Related Data Allergies Allergy/AdvReac Type Severity Reaction Status Date / Time red dye Allergy Change Verified 07/05/18 21:14 Mental Status Home Meds: Home Meds Baclofen [Lioresal] 20 mg PO BID 12/29/15 [History] Aspirin [Halfprin] 81 mg PO DAILY 01/15/16 [History] Carvedilol [Coreg] 3.125 mg PO BID 01/15/16 [History] Escitalopram [Lexapro] 20 mg PO BEDTIME 01/15/16 [History] atorvaSTATin Calcium [Atorvastatin Calcium] 80 mg PO BEDTIME 01/15/16 [History] Biotin 300 mcg PO DAILY 11/05/17 [History] Cholecalciferol (Vitamin D3) [Vitamin D3] 5,000 units PO BEDTIME 11/05/17 [ History] Acetaminophen [Tylenol Extra Strength] 1,000 mg PO ASDIRECTED PRN 02/16/18 [ History] Prednisone [IMW: predniSONE] 40 mg PO WITHBREAKFAST PRN 07/05/18 [History] Past Medical History HEENT History: Reports: Impaired Vision Other HEENT History: GLASSES Cardiovascular History: Reports: [place], Stents Respiratory History: Reports: None Other Musculoskeletal History: MS Neurological History: Reports: MS Psychiatric History: Reports: Depression - Past Surgical History GI Surgical History: Reports: Hernia, Inguinal Male Surgical History: Reports: Vasectomy Social & Family History - Tobacco Use Smoking Status *Q: Former Smoker - Caffeine Use Caffeine Use: Reports: Soda ED ROS GENERAL - Review of Systems Review Of Systems: See Below Constitutional: Reports: Chills, Malaise, Weakness, Fatigue. Denies: Fever, Decreased Appetite HEENT: Denies: Ear Pain, Rhinitis, Sinus Problem, Throat Pain, Vertigo Respiratory: Reports: Shortness of Breath, Cough Cardiovascular: Denies: Chest Pain, Edema, Lightheadedness Endocrine: Reports: Fatigue GI/Abdominal: Reports: Nausea. Denies: Abdominal Pain, Constipation, Diarrhea, Vomiting : Reports: Urinary Retention, Other (recent prostate surgery) Musculoskeletal: Reports: Other (history of MS) Skin: Reports: No Symptoms Neurological: Reports: Weakness ED EXAM, GENERAL - Physical Exam Exam: See Below Exam Limited By: No Limitations General Appearance: Mild Distress, Other (drowsy, took 3 to assist him from car to wheelchair, legs very weak. Unable to bear weight.) Ears: Normal External Exam, Normal TMs Nose: Normal Inspection, Normal Mucosa, No Blood Throat/Mouth: Normal Inspection, Normal Oropharynx, Other (mucous membranes dry) Head: Normocephalic Neck: Normal Inspection, Supple, Non-Tender Respiratory/Chest: No Respiratory Distress, Decreased Breath Sounds Cardiovascular: Regular Rate, Rhythm GI/Abdominal: Normal Bowel Sounds, Soft, Tender (mild lower quadrant tenderness ; suprapubic cath intact) Extremities: Normal Inspection, Other (legs and arms very weak) Neurological: Oriented, Other (drowsy) Skin Exam: Warm, Dry Course - Vital Signs Last Recorded V/S: Last Vital Signs Temp 102 F H 07/05/18 21:16 Pulse 90 07/05/18 21:16 Resp 20 07/05/18 21:16 BP 149/88 H 09/16/18 21:16 Pulse Ox 93 L 07/05/18 21:16 - Orders/Labs/Meds Orders: Active Orders 24 hr Category Date Time Status Patient Status Manage Transfer [TRANSFER] Routine ADT 07/05/18 22:27 Ordered Chest 1V Frontal [CR] Stat Exams 07/05/18 21:18 Taken CULTURE BLOOD [BC] Stat Lab 07/05/18 21:50 Received CULTURE BLOOD [BC] Stat Lab 07/05/18 21:56 Received CULTURE URINE [RM] Stat Lab 07/05/18 21:18 Received Blood Culture x2 Reflex Set [OM.PC] Stat Oth 07/05/18 21:18 Ordered Resuscitation Status Routine Resus Stat 07/05/18 22:28 Ordered Labs: Laboratory Tests 07/05/18 07/05/18 07/05/18 Range/Units 21:18 21:56 22:19 WBC 20.1 H* (5.0-10.0) 10^3/uL RBC 4.77 (4.50-6.00) 10^6/uL Hgb 14.2 (14.0-18.0) g/dL Hct 43.7 (40.0-54.0) % MCV 91.6 (82.0-94.0) fL MCH 29.8 (27.0-32.0) pg MCHC 32.5 L (33.0-38.0) g/dL RDW Coeff of [place]ava 13.8 (11.0-15.0) % Plt Count 360 (150-400) 10^3/uL Add Manual Diff Yes Neutrophils % (Manual) 91 H (35-85) % Lymphocytes % (Manual) 4 L (21-55) % Monocytes % (Manual) 5 (2-12) % Sodium 140 (136-145) mEq/L Potassium 3.8 (3.5-5.0) mEq/L Chloride 104 (98-106) mEq/L Carbon Dioxide 27 (21-32) mmol/L BUN 16 (7-18) mg/dL Creatinine 1.0 (0.7-1.3) mg/dL Est Cr Clr Drug Dosing 86.22 mL/min Estimated GFR (MDRD) > 60 (>=60) mL/min Glucose 154 H D (75-99) mg/dL Calcium 9.2 (8.4-10.1) mg/dL Total Bilirubin 1.4 H (0.0-1.0) mg/dL AST 39 H (15-37) U/L ALT 51 (12-78) U/L Alkaline Phosphatase 108 (46-116) U/L C-Reactive Protein 3.2 H (0.2-0.8) mg/dL Total Protein 6.9 (6.4-8.2) g/dL Albumin 3.1 L (3.4-5.0) g/dL Urine Color Yellow (YELLOW) Urine Appearance Cloudy (CLEAR) Urine pH 5.5 (4.5-8.0) Ur Specific [place] >= 1.030 H (1.003-1.020) Urine Protein 100 H (NEGATIVE) mg/dL Urine Glucose (UA) Negative (NEGATIVE) mg/dL Urine Ketones Trace H (NEGATIVE) mg/dL Urine Occult Blood Large H (NEGATIVE) Urine Nitrite Negative (NEGATIVE) Urine Bilirubin Small H (NEGATIVE) Urine Urobilinogen 0.2 (0.2-1.0) EU/dL Ur Leukocyte Esterase Moderate H (NEGATIVE) Urine RBC Packed H (0-5) /HPF Urine WBC Packed H (0-5) /HPF Urine Bacteria Moderate H (NOT SEEN) /HPF Departure - Departure Time of Disposition: 22:15 Disposition: Admitted As Inpatient 68 Condition: Undetermined Clinical Impression: UTI (urinary tract infection) - Discharge Information *PRESCRIPTION DRUG MONITORING PROGRAM REVIEWED*: No *COPY OF PRESCRIPTION DRUG MONITORING REPORT IN PATIENT GONSALO: No Forms: ED Department Discharge - Problem List & Annotations (1) UTI (urinary tract infection) due to urinary indwelling catheter SNOMED Code(s): 422623580 Code(s): T83.511A - I/I REACT D/T INDWELLING URETHRAL CATHETER, INIT; N39.0 - URINARY TRACT INFECTION, SITE NOT SPECIFIED Status: Acute Priority: High Current Visit: Yes (2) Sepsis SNOMED Code(s): 66113226 Code(s): A41.9 - SEPSIS, UNSPECIFIED ORGANISM Status: Acute Priority: High Current Visit: Yes - Problem List Review Problem List Initiated/Reviewed/Updated: Yes - My Orders Last 24 Hours: My Active Orders 07/05/18 21:18 Chest 1V Frontal [CR] Stat CULTURE URINE [RM] Stat Blood Culture x2 Reflex Set [OM.PC] Stat 09/16/18 21:50 CULTURE BLOOD [BC] Stat 07/05/18 21:56 CULTURE BLOOD [BC] Stat 07/05/18 22:27 Patient Status Manage Transfer [TRANSFER] Routine 07/05/18 22:28 Resuscitation Status Routine - Assessment/Plan Admission H&P: Please use this note as an admission H&P Last 24 Hours: My Active Orders 07/05/18 21:18 Chest 1V Frontal [CR] Stat CULTURE URINE [RM] Stat Blood Culture x2 Reflex Set [OM.PC] Stat 07/05/18 21:50 CULTURE BLOOD [BC] Stat 07/05/18 21:56 CULTURE BLOOD [BC] Stat 07/05/18 22:27 Patient Status Manage Transfer [TRANSFER] Routine 07/05/18 22:28 Resuscitation Status Routine Plan: Admit to inpatient. Start IV fluids/Levaquin. PT for strengthening.
[2018-07-05 22:12] LABS: CHLORIDE,CL 104 mEq/L (98-106); SODIUM,NA 140 mEq/L (136-145)
[2018-07-05] MEDS ORDERED: Levofloxacin/Dextrose 5%-Water 500 MG in Premix Bag 1 BAG IV SCH (23:00)
[2018-07-05] MEDS ORDERED: Sodium Chloride 0.9% 10 ML Syringe FLUSH PRN (23:25)
[2018-07-05] MEDS ORDERED: Ondansetron 4 MG Tab.DIS PO PRN (23:25)
[2018-07-05] MEDS ORDERED: predniSONE 20 MG Tab PO PRN (23:25)
[2018-07-05] MEDS ORDERED: Acetaminophen 325 MG Tab PO PRN (23:25)
[2018-07-05] MEDS: Lactated Ringers 1,000 ML IV SCH (23:50)
[2018-07-05] MEDS: Enoxaparin 40 MG/0.4 ML Syringe SUBCUT SCH (23:52)
[2018-07-06 07:35] LABS: CHLORIDE,CL 107 mEq/L (98-106); SODIUM,NA 143 mEq/L (136-145)
[2018-07-06] MEDS: Baclofen 10 MG Tab PO SCH ×2 (08:00→19:44)
[2018-07-06] MEDS: Carvedilol 3.125 MG Tab PO SCH ×2 (08:00→19:46)
[2018-07-06] MEDS: Aspirin 81 MG Tab.EC PO SCH (08:00)
[2018-07-06] MEDS ORDERED: Biotin/Folic Acid/Vitamin C/Vitamin B Complex Tab PO SCH (08:00)
[2018-07-06] MEDS: Lactated Ringers 1,000 ML IV SCH ×2 (08:19→16:04)
[2018-07-06] MEDS: Levofloxacin/Dextrose 5%-Water 500 MG in Premix Bag 1 BAG IV SCH (19:41)
[2018-07-06] MEDS: Citalopram 10 MG Tab PO SCH (19:44)
[2018-07-06] MEDS: atorvaSTATin 20 MG Tab PO SCH (19:45)
[2018-07-06] MEDS: Cholecalciferol (Vitamin D3) 1,000 Unit Tab PO SCH (19:45)
--- NOTE | 2018-07-06 20:41 | PCM.PN ---
- General Info Date of Service: 07/06/18 Admission Dx/Problem (Free Text): Urosepsis Functional Status: Reports: Pain Controlled, Tolerating Diet, Urinating. Denies : Ambulating - Review of Systems General: Reports: Weakness, Fatigue. Denies: Fever HEENT: Reports: No Symptoms Pulmonary: Denies: Shortness of Breath, Cough Cardiovascular: Denies: Chest Pain, Edema, Lightheadedness Gastrointestinal: Denies: Abdominal Pain, Nausea, Vomiting Musculoskeletal: Reports: No Symptoms Skin: Reports: No Symptoms Neurological: Reports: No Symptoms - Patient Data Vitals - Most Recent: Last Vital Signs Temp 98.8 F 07/06/18 19:46 Pulse 79 07/06/18 19:46 Resp 16 07/06/18 19:46 BP 108/55 L 07/06/18 19:46 Pulse Ox 98 07/06/18 19:46 Weight - Most Recent: 250 lb 3.2 oz I&O - Last 24 Hours: Intake & Output 07/06/18 07/06/18 07/06/18 06:59 14:59 22:59 Intake Total 1000 969 Output Total 175 625 150 Balance -175 375 819 Lab Results Last 24 Hours: Laboratory Results - last 24 hr 07/05/18 07/05/18 07/05/18 Range/Units 21:18 21:56 22:19 WBC 20.1 H* (5.0-10.0) 10^3/uL RBC 4.77 (4.50-6.00) 10^6/uL Hgb 14.2 (14.0-18.0) g/dL Hct 43.7 (40.0-54.0) % MCV 91.6 (82.0-94.0) fL MCH 29.8 (27.0-32.0) pg MCHC 32.5 L (33.0-38.0) g/dL RDW Coeff of Slava 13.8 (11.0-15.0) % Plt Count 360 (150-400) 10^3/uL Add Manual Diff Yes Neutrophils % (Manual) 91 H (35-85) % Band Neutrophils % (0-5) % Lymphocytes % (Manual) 4 L (21-55) % Monocytes % (Manual) 5 (2-12) % Eosinophils % (Manual) (0-5) % Absolute Neutrophils (1.80-7.00) 10^3/uL Lymphocytes # (Manual) (1.00-4.80) 10^3/uL Monocytes # (Manual) (0.00-0.80) 10^3/uL Eosinophils # (Manual) (0.00-0.45) 10^3/uL Sodium 140 (136-145) mEq/L Potassium 3.8 (3.5-5.0) mEq/L Chloride 104 (98-106) mEq/L Carbon Dioxide 27 (21-32) mmol/L BUN 16 (7-18) mg/dL Creatinine 1.0 (0.7-1.3) mg/dL Est Cr Clr Drug Dosing 86.22 mL/min Estimated GFR (MDRD) > 60 (>=60) mL/min Glucose 154 H D (75-99) mg/dL Calcium 9.2 (8.4-10.1) mg/dL Total Bilirubin 1.4 H (0.0-1.0) mg/dL AST 39 H (15-37) U/L ALT 51 (12-78) U/L Alkaline Phosphatase 108 (46-116) U/L C-Reactive Protein 3.2 H (0.2-0.8) mg/dL Total Protein 6.9 (6.4-8.2) g/dL Albumin 3.1 L (3.4-5.0) g/dL Urine Color Yellow (YELLOW) Urine Appearance Cloudy (CLEAR) Urine pH 5.5 (4.5-8.0) Ur Specific [place] >= 1.030 H (1.003-1.020) Urine Protein 100 H (NEGATIVE) mg/dL Urine Glucose (UA) Negative (NEGATIVE) mg/dL Urine Ketones Trace H (NEGATIVE) mg/dL Urine Occult Blood Large H (NEGATIVE) Urine Nitrite Negative (NEGATIVE) Urine Bilirubin Small H (NEGATIVE) Urine Urobilinogen 0.2 (0.2-1.0) EU/dL Ur Leukocyte Esterase Moderate H (NEGATIVE) Urine RBC Packed H (0-5) /HPF Urine WBC Packed H (0-5) /HPF Urine Bacteria Moderate H (NOT SEEN) /HPF 18 07/06/18 Range/Units 05:11 07:00 WBC 27.9 H* (5.0-10.0) 10^3/uL RBC 4.24 L (4.50-6.00) 10^6/uL Hgb 12.6 L (14.0-18.0) g/dL Hct 40.1 (40.0-54.0) % MCV 94.6 H (82.0-94.0) fL MCH 29.7 (27.0-32.0) pg MCHC 31.4 L (33.0-38.0) g/dL RDW Coeff of Slava 14.1 (11.0-15.0) % Plt Count 346 (150-400) 10^3/uL Add Manual Diff Yes Neutrophils % (Manual) 79 (35-85) % Band Neutrophils % 8 H (0-5) % Lymphocytes % (Manual) 5 L (21-55) % Monocytes % (Manual) 6 (2-12) % Eosinophils % (Manual) 2 (0-5) % Absolute Neutrophils 24.27 H (1.80-7.00) 10^3/uL Lymphocytes # (Manual) 1.40 (1.00-4.80) 10^3/uL Monocytes # (Manual) 1.67 H (0.00-0.80) 10^3/uL Eosinophils # (Manual) 0.56 H (0.00-0.45) 10^3/uL Sodium 143 (136-145) mEq/L Potassium 4.4 (3.5-5.0) mEq/L Chloride 107 H (98-106) mEq/L Carbon Dioxide 30 (21-32) mmol/L BUN 14 (7-18) mg/dL Creatinine 1.1 (0.7-1.3) mg/dL Est Cr Clr Drug Dosing 78.38 mL/min Estimated GFR (MDRD) > 60 (>=60) mL/min Glucose 111 H D (75-99) mg/dL Calcium 8.9 (8.4-10.1) mg/dL Total Bilirubin (0.0-1.0) mg/dL AST (15-37) U/L ALT (12-78) U/L Alkaline Phosphatase (46-116) U/L C-Reactive Protein 5.7 H (0.2-0.8) mg/dL Total Protein (6.4-8.2) g/dL Albumin (3.4-5.0) g/dL Urine Color (YELLOW) Urine Appearance (CLEAR) Urine pH (4.5-8.0) Ur Specific [place] (1.003-1.020) Urine Protein (NEGATIVE) mg/dL Urine Glucose (UA) (NEGATIVE) mg/dL Urine Ketones (NEGATIVE) mg/dL Urine Occult Blood (NEGATIVE) Urine Nitrite (NEGATIVE) Urine Bilirubin (NEGATIVE) Urine Urobilinogen (0.2-1.0) EU/dL Ur Leukocyte Esterase (NEGATIVE) Urine RBC (0-5) /HPF Urine WBC (0-5) /HPF Urine Bacteria (NOT SEEN) /HPF Jarett Results Last 24 Hours: Microbiology 07/05/18 21:18 Urine Culture - Preliminary Urine, Clean Catch Gram Positive Cocci Med Orders - Current: Current Medications Acetaminophen (Tylenol) 650 mg PO Q4H PRN PRN Reason: Pain (Mild 1-3)/fever Last Admin: 07/05/18 23:49 Dose: 650 mg Aspirin (Halfprin) 81 mg PO DAILY [facility] Last Admin: 07/06/18 08:00 Dose: 81 mg Atorvastatin Calcium (Lipitor) 80 mg PO BEDTIME [facility] Last Admin: 07/06/18 19:45 Dose: 80 mg Baclofen (Lioresal) 20 mg PO BID [facility] Last Admin: 07/06/18 19:44 Dose: 20 mg Carvedilol (Coreg) 3.125 mg PO BID [facility] Last Admin: 07/06/18 19:46 Dose: 3.125 mg Cholecalciferol (Vitamin D3) 5,000 units PO BEDTIME [facility] Last Admin: 07/06/18 19:45 Dose: 5,000 units Citalopram Hydrobromide (Celexa) 40 mg PO BEDTIME [facility] Last Admin: 07/06/18 19:44 Dose: 40 mg Enoxaparin Sodium (Lovenox) 40 mg SUBCUT Q24H [facility] Last Admin: 07/05/18 23:52 Dose: 40 mg Lactated Ringer's (Ringers, Lactated) 1,000 mls @ 125 mls/hr IV ASDIRECTED [facility] Last Admin: 07/06/18 16:04 Dose: 125 mls/hr Levofloxacin/Dextrose 500 mg/ (Premix) 100 mls @ 100 mls/hr IV DAILY@1999 [facility] Last Admin: 07/06/18 19:41 Dose: 100 mls/hr Ondansetron HCl (Zofran Odt) 4 mg PO Q4H PRN PRN Reason: nausea, able to take PO Prednisone (Prednisone) 40 mg PO WITHBREAKFAST PRN PRN Reason: Other Sodium Chloride (Saline Flush) 10 ml FLUSH ASDIRECTED PRN PRN Reason: Keep Vein Open Vitamin B Complex (Vitamin B Complex) 1 each PO DAILY [facility] Discontinued Medications Levofloxacin/Dextrose 500 mg/ (Premix) 100 mls @ 100 mls/hr IV Q24H [facility] Last Admin: 07/05/18 23:53 Dose: 100 mls/hr Vitamin B Complex/Vit C/Folic Acid (Nephrocaps) 1 tab PO DAILY [facility] Last Admin: 07/06/18 11:26 Dose: Not Given - Exam General: Alert (much more alert this am, conversing), Oriented HEENT: Mucous Membr. Moist/[place] Neck: Supple Lungs: Clear to Auscultation, Normal Respiratory Effort Cardiovascular: Regular Rate, Regular Rhythm GI/Abdominal Exam: Normal Bowel Sounds, Soft, Non-Tender Extremities: Normal Inspection, No Pedal Edema Skin: Warm, Dry Neurological: No New Focal Deficit - Problem List & Annotations (1) UTI (urinary tract infection) due to urinary indwelling catheter SNOMED Code(s): 098791697 Code(s): T83.511A - I/I REACT D/T INDWELLING URETHRAL CATHETER, INIT; N39.0 - URINARY TRACT INFECTION, SITE NOT SPECIFIED Status: Acute Priority: High Current Visit: Yes (2) Sepsis SNOMED Code(s): 89422232 Code(s): A41.9 - SEPSIS, UNSPECIFIED ORGANISM Status: Acute Priority: High Current Visit: Yes - Problem List Review Problem List Initiated/Reviewed/Updated: Yes - My Orders Last 24 Hours: My Active Orders 07/05/18 21:18 Chest 1V Frontal [CR] Stat CULTURE URINE [RM] Stat 07/05/18 21:50 CULTURE BLOOD [BC] Stat 07/05/18 21:56 CULTURE BLOOD [BC] Stat 07/05/18 22:28 Resuscitation Status Routine 07/05/18 23:00 Enoxaparin [Lovenox] 40 mg SUBCUT Q24H 07/05/18 23:25 Patient Status [ADT] Routine Oxygen Therapy [RC] .PRN Peripheral IV Care [RC] 08,1999 Up With Assistance [RC] .PRN Vital Signs [RC] 0800,1200,1600,2000,0000,0400 PT Evaluation and Treatment [CONS] Routine Acetaminophen [Tylenol] 650 mg PO Q4H PRN Lactated Ringers [Ringers, Lactated] 1,000 ml IV ASDIRECTED Ondansetron [Zofran ODT] 4 mg PO Q4H PRN Sodium Chloride 0.9% [Saline Flush] 10 ml FLUSH ASDIRECTED PRN predniSONE 40 mg PO WITHBREAKFAST PRN Peripheral IV Insertion Adult [OM.PC] Routine 07/06/18 08:00 Aspirin [Halfprin] 81 mg PO DAILY Baclofen [Lioresal] 20 mg PO BID Carvedilol [Coreg] 3.125 mg PO BID 07/06/18 20:00 Cholecalciferol (Vitamin D3) [Vitamin D3] 5,000 units PO BEDTIME Citalopram [Celexa] 40 mg PO BEDTIME Levofloxacin/Dextrose 5%-Water [Levaquin in D5W 500 MG/100 ML] 500 mg Premix Bag 1 bag IV DAILY@1999 atorvaSTATin [Lipitor] 80 mg PO BEDTIME 07/07/18 08:00 Vitamin B Complex 1 each PO DAILY - Assessment Assessment:: Urosepsis - Plan Plan:: Patient status much improved from yesterday. More alert, conversive. States feeling much better today than last evening. Fever is down, moving legs about in the bed. Denies shortness of breath. Occasional cough. He did eat a good breakfast this am. Patient voiding small amounts, still performing cath drainage from suprapubic site. WBC elevated more this am at 27.9, CRP increased to 5.7. Initial culture shows gram positive cocci. Will continue with IV fluids, Levaquin. Physical therapy evaluate and treat.
[2018-07-07] MEDS: Enoxaparin 40 MG/0.4 ML Syringe SUBCUT SCH ×2 (00:06→23:35)
[2018-07-07] MEDS: Lactated Ringers 1,000 ML IV SCH (01:11)
[2018-07-07 06:58] LABS: CHLORIDE,CL 108 mEq/L (98-106); SODIUM,NA 143 mEq/L (136-145)
[2018-07-07] MEDS: Vitamin B Complex Cap PO SCH (07:45)
[2018-07-07] MEDS: Aspirin 81 MG Tab.EC PO SCH (07:45)
[2018-07-07] MEDS: Baclofen 10 MG Tab PO SCH ×2 (07:45→20:25)
[2018-07-07] MEDS: Carvedilol 3.125 MG Tab PO SCH ×2 (07:46→20:23)
--- NOTE | 2018-07-07 14:19 | PCM.PN ---
- General Info Date of Service: 07/07/18 Admission Dx/Problem (Free Text): Urosepsis Functional Status: Reports: Pain Controlled, Tolerating Diet. Denies: Ambulating - Review of Systems General: Reports: Weakness, Fatigue. Denies: Fever HEENT: Reports: No Symptoms Pulmonary: Reports: Cough. Denies: Shortness of Breath Cardiovascular: Denies: Chest Pain, Edema, Lightheadedness Gastrointestinal: Denies: Abdominal Pain, Nausea, Vomiting Genitourinary: Reports: Retention Musculoskeletal: Reports: No Symptoms Skin: Reports: No Symptoms Neurological: Reports: Weakness - Patient Data Vitals - Most Recent: Last Vital Signs Temp 96.8 F 07/07/18 12:00 Pulse 73 07/07/18 12:00 Resp 20 07/07/18 12:00 BP 116/69 07/07/18 12:00 Pulse Ox 98 07/07/18 12:00 Weight - Most Recent: 250 lb 3.2 oz I&O - Last 24 Hours: Intake & Output 07/06/18 07/07/18 07/07/18 22:59 06:59 14:59 Intake Total 969 1000 Output Total 600 1200 650 Balance 369 -200 -650 Lab Results Last 24 Hours: Laboratory Results - last 24 hr 07/07/18 07/07/18 Range/Units 06:44 08:55 WBC 10.3 H (5.0-10.0) 10^3/uL RBC 3.91 L (4.50-6.00) 10^6/uL Hgb 11.7 L (14.0-18.0) g/dL Hct 37.0 L (40.0-54.0) % MCV 94.6 H (82.0-94.0) fL MCH 29.9 (27.0-32.0) pg MCHC 31.6 L (33.0-38.0) g/dL RDW Coeff of Slava 13.8 (11.0-15.0) % Plt Count 308 (150-400) 10^3/uL Neut % (Auto) 72.6 (35-85) % Lymph % (Auto) 15.2 (10-55) % [place] % (Auto) 9.2 (0-16) % Eos % (Auto) 2.7 (0-5) % Baso % (Auto) 0.3 (0-3) % Neut # (Auto) 7.48 H (1.80-7.00) 10^3/uL Lymph # (Auto) 1.57 (1.00-4.80) 10^3/uL [place] # (Auto) 0.95 H (0.00-0.80) 10^3/uL Eos # (Auto) 0.28 (0.00-0.45) 10^3/uL Baso # (Auto) 0.03 10^3/uL Sodium 143 (136-145) mEq/L Potassium 3.9 (3.5-5.0) mEq/L Chloride 108 H (98-106) mEq/L Carbon Dioxide 29 (21-32) mmol/L BUN 11 (7-18) mg/dL Creatinine 0.9 (0.7-1.3) mg/dL Est Cr Clr Drug Dosing 95.80 mL/min Estimated GFR (MDRD) > 60 (>=60) mL/min Glucose 113 H (75-99) mg/dL Calcium 8.7 (8.4-10.1) mg/dL C-Reactive Protein 6.4 H (0.2-0.8) mg/dL Jarett Results Last 24 Hours: Microbiology 07/05/18 21:18 Urine Culture - Preliminary Urine, Clean Catch Enterococcus Faecalis Gram Negative Rods 07/05/18 21:50 Aerobic Blood Culture - Preliminary Blood - Venous NO GROWTH AFTER 1 DAY Anaerobic Blood Culture - Preliminary NO GROWTH AFTER 1 DAY 07/05/18 21:56 Aerobic Blood Culture - Preliminary Blood - Venous - Lab Draw NO GROWTH AFTER 1 DAY Anaerobic Blood Culture - Preliminary NO GROWTH AFTER 1 DAY Med Orders - Current: Current Medications Acetaminophen (Tylenol) 650 mg PO Q4H PRN PRN Reason: Pain (Mild 1-3)/fever Last Admin: 07/05/18 23:49 Dose: 650 mg Aspirin (Halfprin) 81 mg PO DAILY [facility] Last Admin: 07/07/18 07:45 Dose: 81 mg Atorvastatin Calcium (Lipitor) 80 mg PO BEDTIME [facility] Last Admin: 07/06/18 19:45 Dose: 80 mg Baclofen (Lioresal) 20 mg PO BID [facility] Last Admin: 07/07/18 07:45 Dose: 20 mg Carvedilol (Coreg) 3.125 mg PO BID [facility] Last Admin: 07/07/18 07:46 Dose: 3.125 mg Cholecalciferol (Vitamin D3) 5,000 units PO BEDTIME [facility] Last Admin: 07/06/18 19:45 Dose: 5,000 units Citalopram Hydrobromide (Celexa) 40 mg PO BEDTIME [facility] Last Admin: 07/06/18 19:44 Dose: 40 mg Enoxaparin Sodium (Lovenox) 40 mg SUBCUT Q24H [facility] Last Admin: 07/07/18 00:06 Dose: 40 mg Levofloxacin/Dextrose 500 mg/ (Premix) 100 mls @ 100 mls/hr IV DAILY@1999 [facility] Last Admin: 07/06/18 19:41 Dose: 100 mls/hr Ondansetron HCl (Zofran Odt) 4 mg PO Q4H PRN PRN Reason: nausea, able to take PO Prednisone (Prednisone) 40 mg PO WITHBREAKFAST PRN PRN Reason: Other Sodium Chloride (Saline Flush) 10 ml FLUSH ASDIRECTED PRN PRN Reason: Keep Vein Open Vitamin B Complex (Vitamin B Complex) 1 each PO DAILY [facility] Last Admin: 07/07/18 07:45 Dose: 1 each Discontinued Medications Lactated Ringer's (Ringers, Lactated) 1,000 mls @ 125 mls/hr IV ASDIRECTED [facility] Last Admin: 07/07/18 01:11 Dose: 125 mls/hr Levofloxacin/Dextrose 500 mg/ (Premix) 100 mls @ 100 mls/hr IV Q24H [facility] Last Admin: 07/05/18 23:53 Dose: 100 mls/hr Vitamin B Complex/Vit C/Folic Acid (Nephrocaps) 1 tab PO DAILY [facility] Last Admin: 07/06/18 11:26 Dose: Not Given - Exam General: Alert, Oriented HEENT: Mucous Membr. Moist/[place] Neck: Supple Lungs: Clear to Auscultation, Normal Respiratory Effort Cardiovascular: Regular Rate, Regular Rhythm GI/Abdominal Exam: Normal Bowel Sounds, Soft, Tender (mildly tender to suprapubic area with palpation) (Male) Exam: Other (suprapubic intact, mild redness to site. Purulent drainage noted on telfa. ) Extremities: Normal Inspection, No Pedal Edema Neurological: No New Focal Deficit - Problem List & Annotations (1) UTI (urinary tract infection) due to urinary indwelling catheter SNOMED Code(s): 869406612 Code(s): T83.511A - I/I REACT D/T INDWELLING URETHRAL CATHETER, INIT; N39.0 - URINARY TRACT INFECTION, SITE NOT SPECIFIED Status: Acute Priority: High Current Visit: Yes Qualifiers: Indwelling urinary catheter type: unspecified Encounter type: initial encounter Qualified Code(s): T83.511A - Infection and inflammatory reaction due to indwelling urethral catheter, initial encounter; N39.0 - Urinary tract infection, site not specified (2) Sepsis SNOMED Code(s): 42063189 Code(s): A41.9 - SEPSIS, UNSPECIFIED ORGANISM Status: Acute Priority: High Current Visit: Yes - Problem List Review Problem List Initiated/Reviewed/Updated: Yes - My Orders Last 24 Hours: My Active Orders 07/06/18 20:00 Cholecalciferol (Vitamin D3) [Vitamin D3] 5,000 units PO BEDTIME Citalopram [Celexa] 40 mg PO BEDTIME Levofloxacin/Dextrose 5%-Water [Levaquin in D5W 500 MG/100 ML] 500 mg Premix Bag 1 bag IV DAILY@1999 atorvaSTATin [Lipitor] 80 mg PO BEDTIME 07/07/18 08:00 Vitamin B Complex 1 each PO DAILY 07/08/18 05:11 BASIC METABOLIC PANEL,BMP [CHEM] AM C-REACTIVE PROTEIN [CHEM] AM CBC WITH AUTO DIFF [HEME] AM - Assessment Assessment:: Urosepsis - Plan Plan:: Patient status much improved from yesterday. More alert, conversive. States feeling much better today than last evening. Fever is down, moving legs about in the bed. Denies shortness of breath. Occasional cough. He did eat a good breakfast this am. Patient voiding small amounts, still performing cath drainage from suprapubic site. WBC elevated more this am at 27.9, CRP increased to 5.7. Initial culture shows gram positive cocci. Will continue with IV fluids, Levaquin. Physical therapy evaluate and treat. 07-07-18 Patient states is feeling good. Mild discomfort in his abdomen. Alert. Is transferring to commode, chair but requires 2 assist yet, minimal weight on feet yet at this point. He has been afebrile now. Appetite is good. WBC improved to 10.5 today, CRP increased to 6.4. Urine culture does show enterococcus that is resistant to Levaquin but also has second gram negative organism present. Blood culture preliminary report is negative. Will continue with the Levaquin until tomorrow when further sensitivities noted. Add Macrobid. Stop IV fluids. Continue with PT. Inappropriate for discharge today.
[2018-07-07] MEDS: Nitrofurantoin Monohydrate/Macrocrystalline 100 MG Cap PO SCH (17:42)
[2018-07-07] MEDS: Levofloxacin/Dextrose 5%-Water 500 MG in Premix Bag 1 BAG IV SCH (20:18)
[2018-07-07] MEDS: Citalopram 10 MG Tab PO SCH (20:23)
[2018-07-07] MEDS: Cholecalciferol (Vitamin D3) 1,000 Unit Tab PO SCH (20:24)
[2018-07-07] MEDS: atorvaSTATin 20 MG Tab PO SCH (20:24)
[2018-07-08] MEDS: Vitamin B Complex Cap PO SCH (07:38)
[2018-07-08] MEDS: Baclofen 10 MG Tab PO SCH (07:38)
[2018-07-08] MEDS: Carvedilol 3.125 MG Tab PO SCH (07:38)
[2018-07-08] MEDS: Aspirin 81 MG Tab.EC PO SCH (07:38)
[2018-07-08] MEDS: Nitrofurantoin Monohydrate/Macrocrystalline 100 MG Cap PO SCH (07:38)
[2018-07-08 07:52] LABS: CHLORIDE,CL 109 mEq/L (98-106); SODIUM,NA 144 mEq/L (136-145)
[2018-07-08 08:21] VITALS: BP 134/32
--- NOTE | 2018-07-09 19:16 | PCM.DCSUM1 ---
Discharge Summary - Hospital Course Free Text/Narrative:: Patient presented to ER with for concerns with weakness and chills. relates he had prostate surgery a week ago and was in the [facility] for 3 days and discharged home. She states he has been very weak since surgery. Not voiding well. Has a suprapubic catheter in but is encouraged to void first if able to "retrain his bladder". Only voiding in small amounts and then she drains the catheter 3 times per day. Up until this afternoon, she relates he has been eating and drinking well. She states he started complaining of feeling chills earlier today and was unable to get relief from that with extra blankets. She was giving him some water at home and he started coughing and she is worried about aspiration. He states he does feel somewhat short of breath. Mild abdominal discomfort. Legs are very weak, required 3 assist for transfers to get him to the vehicle at home. Labs done in the ER show elevated WBC at 20.1, CRP of 3.2. UA positive. Diagnosis: Stroke: No Modified [place] Scale: No Symptoms at All Modified [place] Scale Score: 0 - Discharge Data Discharge Date: 07/08/18 Discharge Disposition: DC/Tfer W/I Hosp To Swing 61 Condition: Good - Discharge Diagnosis/Problem(s) (1) UTI (urinary tract infection) due to urinary indwelling catheter SNOMED Code(s): 578898945 ICD Code: T83.511A - I/I REACT D/T INDWELLING URETHRAL CATHETER, INIT; N39.0 - URINARY TRACT INFECTION, SITE NOT SPECIFIED Status: Acute Priority: High Qualifiers: Indwelling urinary catheter type: unspecified Encounter type: initial encounter Qualified Code(s): T83.511A - Infection and inflammatory reaction due to indwelling urethral catheter, initial encounter; N39.0 - Urinary tract infection, site not specified (2) Sepsis SNOMED Code(s): 46299694 ICD Code: A41.9 - SEPSIS, UNSPECIFIED ORGANISM Status: Acute Priority: High - Patient Summary/Data Complications: none Consults: Consultations 07/05/18 23:25 PT Evaluation and Treatment [CONS] Routine Hospital Course: Patient has had good improvement of status while inpatient. Much more alert, is bearing weight on his legs and transferring short distances. DOes have chronic weakness related to his MS, not quite at his norm yet. Afebrile now. WBC did peak at 27 but is now improved to 10.6. CRP peaked at 6.4. Urine culture showed enterococcus sensitive to Macrobid and additional gram negative [place] that is not yet identified. Thus, did continue levaquin until final ID received. Blood cultures negative. Transfer to swing bed for ongoing IV antibiotics/physical therapy. - Patient Instructions Diet: Usual Diet as Tolerated Activity: As Tolerated - Discharge Plan *PRESCRIPTION DRUG MONITORING PROGRAM REVIEWED*: No *COPY OF PRESCRIPTION DRUG MONITORING REPORT IN PATIENT [place]: No Home Medications: Home Meds Baclofen [Lioresal] 20 mg PO BID 12/29/15 [History] Aspirin [Halfprin] 81 mg PO DAILY 01/15/16 [History] Carvedilol [Coreg] 3.125 mg PO BID 01/15/16 [History] Escitalopram [Lexapro] 20 mg PO BEDTIME 01/15/16 [History] atorvaSTATin Calcium [Atorvastatin Calcium] 80 mg PO BEDTIME 01/15/16 [History] Biotin 300 mcg PO DAILY 11/05/17 [History] Cholecalciferol (Vitamin D3) [Vitamin D3] 5,000 units PO BEDTIME 11/05/17 [ History] Acetaminophen [Tylenol Extra Strength] 1,000 mg PO ASDIRECTED PRN 02/16/18 [ History] Prednisone [IMW: predniSONE] 40 mg PO WITHBREAKFAST PRN 07/05/18 [History] Forms: ED Department Discharge Referrals: PCP,None [Primary Care Provider] - - Discharge Summary/Plan Comment DC Time >30 min.: Yes Discharge Summary/Plan Comment: Transfer patient to swing bed. Continue IV antibiotics. Physical therapy Time with patient 20 minutes Time for orders 10 minutes time for documentation 10 minutes. - General Info Date of Service: 07/08/18 Admission Dx/Problem (Free Text: Urosepsis Functional Status: Reports: Pain Controlled, Tolerating Diet, Ambulating, Urinating - Review of Systems General: Reports: Weakness, Fatigue, Malaise. Denies: Fever HEENT: Reports: No Symptoms Pulmonary: Denies: Shortness of Breath, Cough Cardiovascular: Denies: Chest Pain, Edema, Lightheadedness Gastrointestinal: Denies: Abdominal Pain, Nausea, Vomiting Genitourinary: Reports: Retention (does require catheter drainage from suprapubic 3 times per day, voids approximately 100 ml each void) Musculoskeletal: Reports: No Symptoms Skin: Reports: No Symptoms Neurological: Reports: Weakness - Patient Data Vitals - Most Recent: Last Vital Signs Temp 98.2 F 07/08/18 08:00 Pulse 69 07/08/18 08:00 Resp 16 07/08/18 08:00 BP 134/32 L 07/08/18 08:00 Pulse Ox 97 07/08/18 08:00 Weight - Most Recent: 250 lb 3.2 oz EMANUEL Results - Last 24 hrs: Microbiology 07/05/18 21:18 Bacterial ID and Susceptibility - Preliminary Urine Gram Negative Rods 07/05/18 21:50 Aerobic Blood Culture - Preliminary Blood - Venous NO GROWTH AFTER 3 DAYS Anaerobic Blood Culture - Preliminary NO GROWTH AFTER 3 DAYS 07/05/18 21:56 Aerobic Blood Culture - Preliminary Blood - Venous - Lab Draw NO GROWTH AFTER 3 DAYS Anaerobic Blood Culture - Preliminary NO GROWTH AFTER 3 DAYS Med Orders - Current: Current Medications Discontinued Medications Acetaminophen (Tylenol) 650 mg PO Q4H PRN PRN Reason: Pain (Mild 1-3)/fever Last Admin: 07/05/18 23:49 Dose: 650 mg Aspirin (Halfprin) 81 mg PO DAILY [facility] Last Admin: 07/08/18 07:38 Dose: 81 mg Atorvastatin Calcium (Lipitor) 80 mg PO BEDTIME [facility] Last Admin: 07/07/18 20:24 Dose: 80 mg Baclofen (Lioresal) 20 mg PO BID [facility] Last Admin: 07/08/18 07:38 Dose: 20 mg Carvedilol (Coreg) 3.125 mg PO BID [facility] Last Admin: 07/08/18 07:38 Dose: 3.125 mg Cholecalciferol (Vitamin D3) 5,000 units PO BEDTIME [facility] Last Admin: 07/07/18 20:24 Dose: 5,000 units Citalopram Hydrobromide (Celexa) 40 mg PO BEDTIME [facility] Last Admin: 07/07/18 20:23 Dose: 40 mg Enoxaparin Sodium (Lovenox) 40 mg SUBCUT Q24H [facility] Last Admin: 07/07/18 23:35 Dose: 40 mg Lactated Ringer's (Ringers, Lactated) 1,000 mls @ 125 mls/hr IV ASDIRECTED [facility] Last Admin: 07/07/18 01:11 Dose: 125 mls/hr Levofloxacin/Dextrose 500 mg/ (Premix) 100 mls @ 100 mls/hr IV Q24H [facility] Last Admin: 07/05/18 23:53 Dose: 100 mls/hr Levofloxacin/Dextrose 500 mg/ (Premix) 100 mls @ 100 mls/hr IV DAILY@1999 [facility] Last Admin: 07/07/18 20:18 Dose: 100 mls/hr Nitrofurantoin Macrocrystals (Macrobid) 100 mg PO BIDMEALS [facility] Last Admin: 07/08/18 07:38 Dose: 100 mg Ondansetron HCl (Zofran Odt) 4 mg PO Q4H PRN PRN Reason: nausea, able to take PO Prednisone (Prednisone) 40 mg PO WITHBREAKFAST PRN PRN Reason: Other Sodium Chloride (Saline Flush) 10 ml FLUSH ASDIRECTED PRN PRN Reason: Keep Vein Open Vitamin B Complex (Vitamin B Complex) 1 each PO DAILY [facility] Last Admin: 07/08/18 07:38 Dose: 1 each Vitamin B Complex/Vit C/Folic Acid (Nephrocaps) 1 tab PO DAILY [facility] Last Admin: 07/06/18 11:26 Dose: Not Given - Exam General: Reports: Alert, Oriented HEENT: Reports: Mucous Membr. Moist/[place] Neck: Reports: Supple Lungs: Reports: Clear to Auscultation, Normal Respiratory Effort Cardiovascular: Reports: Regular Rate, Regular Rhythm GI/Abdominal Exam: Normal Bowel Sounds, Soft, Non-Tender Skin: Reports: Warm, Dry Neurological: Reports: No New Focal Deficit
== END 2018-07-08 09:31 | disposition swing bed (61) | DRG 698 ==
LOC: CC.ED 21:13 → UNDOADMIN 21:30 → CC.MS 21:30
PROVIDERS: ADMIT Physician Assistant Medical; ATTEND Family Medicine
DX: T83.511A Infection and inflammatory reaction due to indwelling urethral catheter, initial encounter (principal); A41.9 Sepsis, unspecified organism; N39.0 Urinary tract infection, site not specified; Y84.6 Urinary catheterization as the cause of abnormal reaction of the patient, or of later complication, without mention of misadventure at the time of the procedure; B95.2 Enterococcus as the cause of diseases classified elsewhere; B96.89 Other specified bacterial agents as the cause of diseases classified elsewhere; H54.7 Unspecified visual loss; G35 Multiple sclerosis; F32.9 Major depressive disorder, single episode, unspecified; R33.9 Retention of urine, unspecified; I25.2 Old myocardial infarction; Z87.891 Personal history of nicotine dependence; Z96.0 Presence of urogenital implants; Z91.048 Other nonmedicinal substance allergy status; Z79.82 Long term (current) use of aspirin; R53.81 Other malaise; R53.83 Other fatigue; R06.02 Shortness of breath; R50.9 Fever, unspecified; R53.1 Weakness; R05 Cough; R11.0 Nausea; Z79.52 Long term (current) use of systemic steroids; Z79.899 Other long term (current) drug therapy
CPT/HCPCS: 36415; 71045; 80048; 80053; 81001; 85025; 86140; 87040; 87086; 87088; 87186; 97162-GP; 97530-GP; 99285; A9270-GY; J1650; J1956; J7120

== ENCOUNTER 2018-07-08 09:01 | Inpatient (IN) | payer MEDICARE, OTHER ==
[2018-07-08] MEDS ORDERED: predniSONE 20 MG Tab PO PRN (12:13)
[2018-07-08] MEDS ORDERED: Sodium Chloride 0.9% 10 ML Syringe FLUSH PRN ×2 (12:13)
[2018-07-08] MEDS ORDERED: Ondansetron 4 MG Tab.DIS PO PRN (12:13)
[2018-07-08] MEDS: Nitrofurantoin Monohydrate/Macrocrystalline 100 MG Cap PO SCH (17:30)
[2018-07-08] MEDS: Citalopram 10 MG Tab PO SCH (20:00)
[2018-07-08] MEDS: Carvedilol 3.125 MG Tab PO SCH (20:01)
[2018-07-08] MEDS: atorvaSTATin 20 MG Tab PO SCH (20:02)
[2018-07-08] MEDS: Baclofen 10 MG Tab PO SCH (20:02)
[2018-07-08] MEDS: Cholecalciferol (Vitamin D3) 1,000 Unit Tab PO SCH (20:03)
[2018-07-08] MEDS: Enoxaparin 40 MG/0.4 ML Syringe SUBCUT SCH (20:04)
[2018-07-08] MEDS: Levofloxacin/Dextrose 5%-Water 500 MG in Premix Bag 1 BAG IV SCH (20:04)
[2018-07-09] MEDS: Vitamin B Complex Cap PO SCH (07:53)
[2018-07-09] MEDS: Nitrofurantoin Monohydrate/Macrocrystalline 100 MG Cap PO SCH ×2 (07:53→17:59)
[2018-07-09] MEDS: Carvedilol 3.125 MG Tab PO SCH ×2 (07:53→19:47)
[2018-07-09] MEDS: Baclofen 10 MG Tab PO SCH ×2 (07:53→19:45)
[2018-07-09] MEDS: Aspirin 81 MG Tab.EC PO SCH (07:53)
[2018-07-09] MEDS: Levofloxacin/Dextrose 5%-Water 500 MG in Premix Bag 1 BAG IV SCH (19:38)
[2018-07-09] MEDS: Citalopram 10 MG Tab PO SCH (19:44)
[2018-07-09] MEDS: atorvaSTATin 20 MG Tab PO SCH (19:45)
[2018-07-09] MEDS: Cholecalciferol (Vitamin D3) 1,000 Unit Tab PO SCH (19:46)
[2018-07-09] MEDS: Enoxaparin 40 MG/0.4 ML Syringe SUBCUT SCH (19:48)
[2018-07-10] MEDS: Acetaminophen 325 MG Tab PO PRN (07:51)
[2018-07-10] MEDS: Nitrofurantoin Monohydrate/Macrocrystalline 100 MG Cap PO SCH ×2 (07:52→18:02)
[2018-07-10] MEDS: Baclofen 10 MG Tab PO SCH ×2 (07:52→20:08)
[2018-07-10] MEDS: Vitamin B Complex Cap PO SCH (07:52)
[2018-07-10] MEDS: Carvedilol 3.125 MG Tab PO SCH ×2 (07:52→20:07)
[2018-07-10] MEDS: Aspirin 81 MG Tab.EC PO SCH (07:52)
[2018-07-10] MEDS: Levofloxacin/Dextrose 5%-Water 500 MG in Premix Bag 1 BAG IV SCH (20:06)
[2018-07-10] MEDS: Citalopram 10 MG Tab PO SCH (20:07)
[2018-07-10] MEDS: Cholecalciferol (Vitamin D3) 1,000 Unit Tab PO SCH (20:07)
[2018-07-10] MEDS: Enoxaparin 40 MG/0.4 ML Syringe SUBCUT SCH (20:08)
[2018-07-10] MEDS: atorvaSTATin 20 MG Tab PO SCH (20:08)
[2018-07-11] MEDS: Nitrofurantoin Monohydrate/Macrocrystalline 100 MG Cap PO SCH ×2 (07:55→17:43)
[2018-07-11] MEDS: Vitamin B Complex Cap PO SCH (07:55)
[2018-07-11] MEDS: Baclofen 10 MG Tab PO SCH ×2 (07:55→19:52)
[2018-07-11] MEDS: Carvedilol 3.125 MG Tab PO SCH ×2 (07:56→19:51)
[2018-07-11] MEDS: Aspirin 81 MG Tab.EC PO SCH (07:56)
[2018-07-11] MEDS: Levofloxacin/Dextrose 5%-Water 500 MG in Premix Bag 1 BAG IV SCH (19:43)
[2018-07-11] MEDS: Citalopram 10 MG Tab PO SCH (19:52)
[2018-07-11] MEDS: Cholecalciferol (Vitamin D3) 1,000 Unit Tab PO SCH (19:52)
[2018-07-11] MEDS: atorvaSTATin 20 MG Tab PO SCH (19:52)
[2018-07-11] MEDS: Enoxaparin 40 MG/0.4 ML Syringe SUBCUT SCH (19:52)
[2018-07-12] MEDS: Pantoprazole 40 MG Tab.CR PO SCH (06:34)
[2018-07-12] MEDS: Baclofen 10 MG Tab PO SCH ×2 (07:28→19:31)
[2018-07-12] MEDS: Nitrofurantoin Monohydrate/Macrocrystalline 100 MG Cap PO SCH ×2 (07:29→17:39)
[2018-07-12] MEDS: Carvedilol 3.125 MG Tab PO SCH ×2 (07:29→19:31)
[2018-07-12] MEDS: Aspirin 81 MG Tab.EC PO SCH (07:29)
[2018-07-12] MEDS: Vitamin B Complex Cap PO SCH (07:29)
[2018-07-12] MEDS: Citalopram 10 MG Tab PO SCH (19:30)
[2018-07-12] MEDS: Levofloxacin/Dextrose 5%-Water 500 MG in Premix Bag 1 BAG IV SCH (19:30)
[2018-07-12] MEDS: Enoxaparin 40 MG/0.4 ML Syringe SUBCUT SCH (19:31)
[2018-07-12] MEDS: Cholecalciferol (Vitamin D3) 1,000 Unit Tab PO SCH (19:31)
[2018-07-12] MEDS: atorvaSTATin 20 MG Tab PO SCH (19:31)
[2018-07-12] MEDS: Acetaminophen 325 MG Tab PO PRN (22:29)
[2018-07-13] MEDS: Pantoprazole 40 MG Tab.CR PO SCH (06:32)
[2018-07-13 07:39] VITALS: BP 122/78
[2018-07-13] MEDS: Aspirin 81 MG Tab.EC PO SCH (08:47)
[2018-07-13] MEDS: Nitrofurantoin Monohydrate/Macrocrystalline 100 MG Cap PO SCH (08:47)
[2018-07-13] MEDS: Carvedilol 3.125 MG Tab PO SCH (08:47)
[2018-07-13] MEDS: Baclofen 10 MG Tab PO SCH (08:47)
[2018-07-13] MEDS: Vitamin B Complex Cap PO SCH (08:48)
--- NOTE | 2018-07-13 21:15 | PCM.DCSUM1 ---
Discharge Summary - Hospital Course Free Text/Narrative:: Patient admitted to acute inpatient due to UTI with fever. He had recently had a TURP. Was having issues with voiding after surgery as had before. Does have a suprapubic catheter intact that was draining 3 times per day. Was doing very well otherwise when got suddenly got very weak and very chilled. Seen in ER initially and found to have UTI with temp of 102. Blood cultures and urine culture obtained. Started on IV Levaquin During acute stay, blood cultures negative. Urine culture obtained, positive for enterococcus and additional gram negative rods. Macrobid added. Continued Levaquin while awaiting sensitivity and full ID of remaining bacteria as was sent out to [facility]. By discharge to swing bed, patient afebrile. Initially required 2 assist for transfers, able to transfer with 1 assist and walker. Ambulating short distances to bathroom with walker. Transfered to swing bed for ongoing physical therapy. IV Levaquin and Macrobid for UTI. Diagnosis: Stroke: No Modified Remberto Scale: No Symptoms at All Modified Remberto Scale Score: 0 - Discharge Data Discharge Date: 07/13/18 Discharge Disposition: Home, Self-Care 01 Condition: Good - Patient Summary/Data Complications: none Consults: Consultations 07/08/18 12:13 PT Evaluation and Treatment [CONS] Routine Hospital Course: Patient has had good improvement back to his baseline. Is ambulating with his walker and physical therapy feels he has stabilized to his norm. No longer febrile. Voids nearly equal now to suprapubic output. No abdominal pain, nausea or vomiting. No cough. UA done today, shows 5-10 WBC much improved from packed field on admit to inpatient. Will discharge home on Macrobid. provides care at home. Follow up with Dr. Kurtz for postsurgical care. - Patient Instructions Diet: Usual Diet as Tolerated Activity: As Tolerated - Discharge Plan *PRESCRIPTION DRUG MONITORING PROGRAM REVIEWED*: No *COPY OF PRESCRIPTION DRUG MONITORING REPORT IN PATIENT GONSALO: No Prescriptions/Med Rec: Nitrofurantoin [place]/Macrocryst [Nitrofurantoin [place]-MCR] 100 mg PO BIDMEALS #14 cap Home Medications: Home Meds Baclofen [Lioresal] 20 mg PO BID 12/29/15 [History] Aspirin [Halfprin] 81 mg PO DAILY 01/15/16 [History] Carvedilol [Coreg] 3.125 mg PO BID 01/15/16 [History] Escitalopram [Lexapro] 20 mg PO BEDTIME 01/15/16 [History] atorvaSTATin Calcium [Atorvastatin Calcium] 80 mg PO BEDTIME 01/15/16 [History] Biotin 300 mcg PO DAILY 11/05/17 [History] Cholecalciferol (Vitamin D3) [Vitamin D3] 5,000 units PO BEDTIME 11/05/17 [ History] Acetaminophen [Tylenol Extra Strength] 1,000 mg PO ASDIRECTED PRN 02/16/18 [ History] Prednisone [IMW: predniSONE] 40 mg PO WITHBREAKFAST PRN 07/05/18 [History] Omeprazole 20 mg PO DAILY 07/11/18 [History] Nitrofurantoin [place]/Macrocryst [Nitrofurantoin [place]-MCR] 100 mg PO BIDMEALS #14 cap 07/13/18 [Rx] Referrals: Arnulfo Manzano MD [ED Physician] - (Hospital follow up with Dr. Manzano in 10 days) - Discharge Summary/Plan Comment DC Time >30 min.: No Discharge Summary/Plan Comment: Discharge home. Continue Macrobid. to provide care at home. Follow up with Dr. Manzano in 2 weeks, [address]. Kurtz as previously scheduled. - General Info Date of Service: 07/13/18 Admission Dx/Problem (Free Text: UTI with fever Weakness History of MS Functional Status: Reports: Pain Controlled, Tolerating Diet, Ambulating, Urinating - Review of Systems General: Reports: Weakness. Denies: Fever, Fatigue, Malaise HEENT: Reports: No Symptoms Pulmonary: Denies: Shortness of Breath, Cough Cardiovascular: Denies: Chest Pain, Edema, Lightheadedness Gastrointestinal: Denies: Abdominal Pain, Nausea, Vomiting Genitourinary: Reports: Retention Musculoskeletal: Reports: No Symptoms Skin: Reports: No Symptoms Neurological: Reports: Weakness - Patient Data Vitals - Most Recent: Last Vital Signs Temp 98.2 F 07/13/18 07:39 Pulse 79 07/13/18 07:39 Resp 19 07/13/18 07:39 BP 122/78 07/13/18 07:39 Pulse Ox 96 07/13/18 07:39 Weight - Most Recent: 239 lb 9.6 oz Lab Results - Last 24 hrs: Laboratory Results - last 24 hr 07/13/18 Range/Units 13:45 Urine Color Yellow (YELLOW) Urine Appearance Clear (CLEAR) Urine pH 6.5 (4.5-8.0) Ur Specific [place] 1.010 (1.003-1.020) Urine Protein Negative (NEGATIVE) mg/dL Urine Glucose (UA) Negative (NEGATIVE) mg/dL Urine Ketones Negative (NEGATIVE) mg/dL Urine Occult Blood Moderate H (NEGATIVE) Urine Nitrite Negative (NEGATIVE) Urine Bilirubin Negative (NEGATIVE) Urine Urobilinogen 0.2 (0.2-1.0) EU/dL Ur Leukocyte Esterase Small H (NEGATIVE) Urine RBC 30-40 H (0-5) /HPF Urine WBC 5-10 H (0-5) /HPF Med Orders - Current: Current Medications Acetaminophen (Tylenol) 650 mg PO Q4H PRN PRN Reason: Pain (Mild 1-3)/fever Last Admin: 07/12/18 22:29 Dose: 650 mg Aspirin (Halfprin) 81 mg PO DAILY [facility] Last Admin: 07/13/18 08:47 Dose: 81 mg Atorvastatin Calcium (Lipitor) 80 mg PO BEDTIME [facility] Last Admin: 07/12/18 19:31 Dose: 80 mg Baclofen (Lioresal) 20 mg PO BID [facility] Last Admin: 07/13/18 08:47 Dose: 20 mg Carvedilol (Coreg) 3.125 mg PO BID [facility] Last Admin: 07/13/18 08:47 Dose: 3.125 mg Cholecalciferol (Vitamin D3) 5,000 units PO BEDTIME [facility] Last Admin: 07/12/18 19:31 Dose: 5,000 units Citalopram Hydrobromide (Celexa) 40 mg PO BEDTIME [facility] Last Admin: 07/12/18 19:30 Dose: 40 mg Enoxaparin Sodium (Lovenox) 40 mg SUBCUT DAILY@1999 [facility] Last Admin: 07/12/18 19:31 Dose: 40 mg Levofloxacin/Dextrose 500 mg/ (Premix) 100 mls @ 100 mls/hr IV DAILY@1999 [facility] Last Admin: 07/12/18 19:30 Dose: 100 mls/hr Nitrofurantoin Macrocrystals (Macrobid) 100 mg PO BIDMEALS [facility] Last Admin: 07/13/18 08:47 Dose: 100 mg Ondansetron HCl (Zofran Odt) 4 mg PO Q4H PRN PRN Reason: nausea, able to take PO Pantoprazole Sodium (Protonix) 40 mg PO DAILY@0700 [facility] Last Admin: 07/13/18 06:32 Dose: 40 mg Prednisone (Prednisone) 40 mg PO WITHBREAKFAST PRN PRN Reason: Other Sodium Chloride (Saline Flush) 10 ml FLUSH ASDIRECTED PRN PRN Reason: Keep Vein Open Vitamin B Complex (Vitamin B Complex) 1 each PO DAILY [facility] Last Admin: 07/13/18 08:48 Dose: 1 each Discontinued Medications Sodium Chloride (Saline Flush) 10 ml FLUSH ASDIRECTED PRN PRN Reason: Keep Vein Open - Exam General: Reports: Alert, Oriented HEENT: Reports: Mucous Membr. Moist/[place] Neck: Reports: Supple Lungs: Reports: Clear to Auscultation, Normal Respiratory Effort Cardiovascular: Reports: Regular Rate, Regular Rhythm GI/Abdominal Exam: Normal Bowel Sounds, Soft, Non-Tender, Other (suprapubic intact to lower abdomen) Skin: Reports: Warm, Dry Neurological: Reports: No New Focal Deficit
== END 2018-07-13 17:30 | disposition home or self-care (01) | DRG 698 ==
LOC: CC.MS 09:01 → UNDOADMIN 09:40
PROVIDERS: ADMIT Physician Assistant Medical; ATTEND Family Medicine
DX: T83.511A Infection and inflammatory reaction due to indwelling urethral catheter, initial encounter (principal); A41.9 Sepsis, unspecified organism; N39.0 Urinary tract infection, site not specified; B95.2 Enterococcus as the cause of diseases classified elsewhere; B96.89 Other specified bacterial agents as the cause of diseases classified elsewhere; Y84.6 Urinary catheterization as the cause of abnormal reaction of the patient, or of later complication, without mention of misadventure at the time of the procedure; R53.1 Weakness; G35 Multiple sclerosis; H54.7 Unspecified visual loss; I25.2 Old myocardial infarction; F32.9 Major depressive disorder, single episode, unspecified; Z87.891 Personal history of nicotine dependence; Z79.82 Long term (current) use of aspirin; Z79.899 Other long term (current) drug therapy; Z91.048 Other nonmedicinal substance allergy status; Z95.5 Presence of coronary angioplasty implant and graft
CPT/HCPCS: 81001; 87086; 97110-GP; 97530-GP; A9270-GY; J1650; J1956

== ENCOUNTER 2018-11-09 16:54 | Observation (INO) | payer MEDICARE, OTHER ==
[2018-11-09 17:30] LABS: CHLORIDE,CL 107 mEq/L (98-106); SODIUM,NA 145 mEq/L (136-145)
[2018-11-09] MEDS ORDERED: Acetaminophen 325 MG Tab PO PRN (18:34)
[2018-11-09] MEDS ORDERED: Acetaminophen 500 MG Tab PO PRN ×2 (18:46→20:12)
[2018-11-09] MEDS: Lactated Ringers 1,000 ML IV SCH (18:57)
[2018-11-09] MEDS: Baclofen 10 MG Tab PO SCH (19:03)
[2018-11-09] MEDS: CARVEDILOL 3.125 MG PO SCH (19:03)
[2018-11-09] MEDS: Citalopram 10 MG Tab PO SCH (19:03)
[2018-11-09] MEDS ORDERED: Enoxaparin 30 MG/0.3 ML Syringe SUBCUT SCH (19:30)
[2018-11-10] MEDS: Lactated Ringers 1,000 ML IV SCH ×2 (04:03→14:37)
[2018-11-10] MEDS: Pantoprazole 40 MG Tab.CR PO SCH (06:34)
[2018-11-10 07:24] LABS: CHLORIDE,CL 107 mEq/L (98-106); SODIUM,NA 145 mEq/L (136-145)
[2018-11-10] MEDS: CARVEDILOL 3.125 MG PO SCH ×2 (07:31→19:54)
[2018-11-10] MEDS: Aspirin 81 MG Tab.EC PO SCH (07:31)
[2018-11-10] MEDS: Baclofen 10 MG Tab PO SCH ×2 (07:31→19:55)
--- NOTE | 2018-11-10 13:44 | PCM.PN ---
- General Info Date of Service: 11/10/18 Admission Dx/Problem (Free Text): weakness Functional Status: Reports: Pain Controlled, Tolerating Diet, Ambulating, Urinating - Review of Systems General: Reports: Weakness, Fatigue, Malaise HEENT: Reports: No Symptoms Pulmonary: Denies: Shortness of Breath, Cough Cardiovascular: Denies: Chest Pain, Edema, Lightheadedness Gastrointestinal: Denies: Abdominal Pain, Nausea, Vomiting Musculoskeletal: Reports: Other (weakness due to MS) Skin: Reports: No Symptoms Neurological: Reports: Weakness - Patient Data Vitals - Most Recent: Last Vital Signs Temp 97.3 F 11/10/18 12:00 Pulse 74 11/10/18 12:00 Resp 18 11/10/18 12:00 BP 125/67 11/10/18 12:00 Pulse Ox 100 11/10/18 12:00 Weight - Most Recent: 237 lb 4.8 oz I&O - Last 24 Hours: Intake & Output 11/09/18 11/10/18 11/10/18 22:59 06:59 14:59 Intake Total 910 Balance 910 Lab Results Last 24 Hours: Laboratory Results - last 24 hr 11/09/18 11/09/18 11/09/18 Range/Units 17:15 17:15 17:38 WBC 12.6 H (5.0-10.0) 10^3/uL RBC 4.98 (4.50-6.00) 10^6/uL Hgb 15.1 (14.0-18.0) g/dL Hct 45.0 (40.0-54.0) % MCV 90.4 (82.0-94.0) fL MCH 30.3 (27.0-32.0) pg MCHC 33.6 (33.0-38.0) g/dL RDW Coeff of [place] 14.4 (11.0-15.0) % Plt Count 307 (150-400) 10^3/uL Neut % (Auto) 72.1 (35-85) % Lymph % (Auto) 16.3 (10-55) % [place] % (Auto) 7.8 (0-16) % Eos % (Auto) 3.3 (0-5) % Baso % (Auto) 0.5 (0-3) % Neut # (Auto) 9.05 H (1.80-7.00) 10^3/uL Lymph # (Auto) 2.05 (1.00-4.80) 10^3/uL [place] # (Auto) 0.98 H (0.00-0.80) 10^3/uL Eos # (Auto) 0.42 (0.00-0.45) 10^3/uL Baso # (Auto) 0.06 10^3/uL Sodium 145 (136-145) mEq/L Potassium 3.8 (3.5-5.0) mEq/L Chloride 107 H (98-106) mEq/L Carbon Dioxide 28 (21-32) mmol/L BUN 13 (7-18) mg/dL Creatinine 0.9 (0.7-1.3) mg/dL Est Cr Clr Drug Dosing TNP Estimated GFR (MDRD) > 60 (>=60) mL/min Glucose 116 H (75-99) mg/dL Calcium 8.9 (8.4-10.1) mg/dL Total Bilirubin 0.9 (0.0-1.0) mg/dL AST 18 (15-37) U/L ALT 42 (12-78) U/L Alkaline Phosphatase 133 H (46-116) U/L C-Reactive Protein 1.4 H (0.2-0.8) mg/dL Total Protein 6.9 (6.4-8.2) g/dL Albumin 2.9 L (3.4-5.0) g/dL Urine Color Yellow (YELLOW) Urine Appearance Clear (CLEAR) Urine pH 6.5 (4.5-8.0) Ur Specific [place] 1.015 (1.003-1.020) Urine Protein Negative (NEGATIVE) mg/dL Urine Glucose (UA) Negative (NEGATIVE) mg/dL Urine Ketones Negative (NEGATIVE) mg/dL Urine Occult Blood Negative (NEGATIVE) Urine Nitrite Negative (NEGATIVE) Urine Bilirubin Negative (NEGATIVE) Urine Urobilinogen 1.0 (0.2-1.0) EU/dL Ur Leukocyte Esterase Negative (NEGATIVE) Urine RBC 0-5 (0-5) /HPF Urine WBC 0-5 (0-5) /HPF Ur Epithelial Cells Few H (NOT SEEN) /HPF 11/10/18 11/10/18 Range/Units 06:50 06:50 WBC 11.3 H (5.0-10.0) 10^3/uL RBC 4.45 L (4.50-6.00) 10^6/uL Hgb 13.4 L (14.0-18.0) g/dL Hct 41.0 (40.0-54.0) % MCV 92.1 (82.0-94.0) fL MCH 30.1 (27.0-32.0) pg MCHC 32.7 L (33.0-38.0) g/dL RDW Coeff of [place] 14.3 (11.0-15.0) % Plt Count 261 (150-400) 10^3/uL Neut % (Auto) 67.3 (35-85) % Lymph % (Auto) 19.8 (10-55) % [place] % (Auto) 8.9 (0-16) % Eos % (Auto) 3.7 (0-5) % Baso % (Auto) 0.3 (0-3) % Neut # (Auto) 7.60 H (1.80-7.00) 10^3/uL Lymph # (Auto) 2.24 (1.00-4.80) 10^3/uL [place] # (Auto) 1.01 H (0.00-0.80) 10^3/uL Eos # (Auto) 0.42 (0.00-0.45) 10^3/uL Baso # (Auto) 0.03 10^3/uL Sodium 145 (136-145) mEq/L Potassium 3.6 (3.5-5.0) mEq/L Chloride 107 H (98-106) mEq/L Carbon Dioxide 32 (21-32) mmol/L BUN 15 (7-18) mg/dL Creatinine 0.8 (0.7-1.3) mg/dL Est Cr Clr Drug Dosing 106.43 Estimated GFR (MDRD) > 60 (>=60) mL/min Glucose 99 (75-99) mg/dL Calcium 8.7 (8.4-10.1) mg/dL Total Bilirubin (0.0-1.0) mg/dL AST (15-37) U/L ALT (12-78) U/L Alkaline Phosphatase (46-116) U/L C-Reactive Protein 1.3 H (0.2-0.8) mg/dL Total Protein (6.4-8.2) g/dL Albumin (3.4-5.0) g/dL Urine Color (YELLOW) Urine Appearance (CLEAR) Urine pH (4.5-8.0) Ur Specific [place] (1.003-1.020) Urine Protein (NEGATIVE) mg/dL Urine Glucose (UA) (NEGATIVE) mg/dL Urine Ketones (NEGATIVE) mg/dL Urine Occult Blood (NEGATIVE) Urine Nitrite (NEGATIVE) Urine Bilirubin (NEGATIVE) Urine Urobilinogen (0.2-1.0) EU/dL Ur Leukocyte Esterase (NEGATIVE) Urine RBC (0-5) /HPF Urine WBC (0-5) /HPF Ur Epithelial Cells (NOT SEEN) /HPF Med Orders - Current: Current Medications Acetaminophen (Tylenol) 650 mg PO Q4H PRN PRN Reason: Pain (Mild 1-3)/fever Acetaminophen (Tylenol Extra Strength) 1,000 mg PO Q6H PRN PRN Reason: Pain Aspirin (Halfprin) 81 mg PO DAILY [facility] Last Admin: 11/10/18 07:31 Dose: 81 mg Baclofen (Lioresal) 20 mg PO BID [facility] Last Admin: 11/10/18 07:31 Dose: 20 mg Carvedilol (Coreg) 3.125 mg PO BID [facility] Last Admin: 11/10/18 07:31 Dose: 3.125 mg Citalopram Hydrobromide (Celexa) 40 mg PO BEDTIME [facility] Last Admin: 11/09/18 19:03 Dose: Not Given Enoxaparin Sodium (Lovenox) 30 mg SUBCUT 2000 [facility] Lactated Ringer's (Ringers, Lactated) 1,000 mls @ 100 mls/hr IV ASDIRECTED [facility] Last Admin: 11/10/18 04:03 Dose: 100 mls/hr Pantoprazole Sodium (Protonix) 40 mg PO DAILY@0700 [facility] Last Admin: 11/10/18 06:34 Dose: 40 mg Discontinued Medications Acetaminophen (Tylenol Extra Strength) 1,000 mg PO ASDIRECTED PRN PRN Reason: Pain Enoxaparin Sodium (Lovenox) 30 mg SUBCUT Q24H [facility] Last Admin: 11/09/18 20:17 Dose: 30 mg - Exam General: Alert, Oriented HEENT: Mucous Membr. Moist/[place] Neck: Supple Lungs: Clear to Auscultation, Normal Respiratory Effort Cardiovascular: Regular Rate, Regular Rhythm GI/Abdominal Exam: Normal Bowel Sounds, Soft, Non-Tender Extremities: Normal Inspection, No Pedal Edema Skin: Warm, Dry Neurological: No New Focal Deficit - Problem List & Annotations (1) Weakness SNOMED Code(s): 31420602 Code(s): R53.1 - WEAKNESS Status: Acute Priority: High Current Visit: Yes (2) Multiple sclerosis SNOMED Code(s): 92394091 Code(s): G35 - MULTIPLE SCLEROSIS Status: Chronic Priority: High Current Visit: Yes - Problem List Review Problem List Initiated/Reviewed/Updated: Yes - Assessment Assessment:: Weakness - Plan Plan:: Patient admits to feeling better today. Was given IV fluids overnight and feels that has helped. Patient able to ambulate again this am where yesterday, he required 2 assist to get out of the vehicle. Him and his relate that when he becomes very weak, is difficult for them to transfer them even with 2. He denies any chest pain or shortness of breath. No nausea. Did recently have a BM which he states relieved the abdominal pressure. Labs essentially negative on admit, UA clear. Will continue IV fluids for one more day. PT to evaluate. Patient would benefit from having a phi lift to assist family at home when he has flares or his MS or becomes very weak as they have had to rely on outside help beyond his and daughter at times even for transfers. Probable return home tomorrow.
[2018-11-10] MEDS: Citalopram 10 MG Tab PO SCH (19:54)
[2018-11-10] MEDS ORDERED: Enoxaparin 30 MG/0.3 ML Syringe SUBCUT SCH (20:00)
[2018-11-11] MEDS: Lactated Ringers 1,000 ML IV SCH
[2018-11-11] MEDS: Pantoprazole 40 MG Tab.CR PO SCH (06:38)
[2018-11-11] MEDS ORDERED: methylPREDNISolone Sodium Succinate 125 MG/2 ML SDV IVPUSH ONE (08:36)
[2018-11-11] MEDS: CARVEDILOL 3.125 MG PO SCH (08:48)
[2018-11-11] MEDS: Baclofen 10 MG Tab PO SCH (08:49)
[2018-11-11] MEDS: Aspirin 81 MG Tab.EC PO SCH (08:51)
[2018-11-11] MEDS ORDERED: BACLOFEN 20 MG PO SCH (09:00)
[2018-11-11 11:51] VITALS: BP 122/62
[2018-11-11] MEDS ORDERED: ESCITALOPRAM 20 MG PO SCH (20:00)
--- NOTE | 2018-11-11 20:11 | PCM.DCSUM1 ---
Discharge Summary - Hospital Course Free Text/Narrative:: Patient presented to clinic and was evaluated by Heidi Whitaker for increased weakness. reported that for 3-4 days has had progressing weakness to the point where he couldn't assist with even repositioning in his chair. He has a history of MS and does have episodes like this periodically. He had been in [facility] a [facility] and was doing well with receiving therapy. Was taken home when his therapy there was complete. He had home health for a short time. Once therapy stopped, he has declined as he is not doing any exercises. He has a history of frequent UTIs and a history of large subdural bleed. CT scan done in clinic was negative. Labs show mild elevation of WBC and CRP. UA clear. Admitted for IV hydration and PT evaluation. Diagnosis: Stroke: No Modified [place] Scale: No Symptoms at All Modified [place] Scale Score: 0 - Discharge Data Discharge Date: 11/11/18 Discharge Disposition: Home, W Home Health Agency 06 Condition: Good - Discharge Diagnosis/Problem(s) (1) Weakness SNOMED Code(s): 73778108 ICD Code: R53.1 - WEAKNESS Status: Acute Priority: High (2) Multiple sclerosis SNOMED Code(s): 68495404 ICD Code: G35 - MULTIPLE SCLEROSIS Status: Chronic Priority: High - Patient Summary/Data Complications: none Consults: Consultations 11/09/18 18:34 PT Evaluation and Treatment [CONS] Routine Hospital Course: Patient doing well this am. He has been ambulating short distances with one assist with walker. He has been afebrile. Blood pressure stable. Patient initially has some abdominal discomfort due to constipation but has had a good BM and feels much relief. He is incontinent of urine but is his norm. Solu Medrol given today and will discharge home on prednisone. Will arrange for phi lift at home as has periods where family has difficulty with transfers and he will require more assist than they are capable with a 2 person transfer. [facility] to see patient on discharge. Nursing to monitor skin care due to incontinence and immobility. Monitor for urinary symptoms, mental status changes and vital signs. Physical therapy for strengthening and mobility. Patient homebound due to inability to drive due to MS, requires [address] Manzano to oversee home health care. - Patient Instructions Diet: Usual Diet as Tolerated Activity: As Tolerated - Discharge Plan *PRESCRIPTION DRUG MONITORING PROGRAM REVIEWED*: No *COPY OF PRESCRIPTION DRUG MONITORING REPORT IN PATIENT [place]: No Prescriptions/Med Rec: predniSONE [Prednisone] 40 mg PO DAILY #5 tablet Home Medications: Home Meds Baclofen [Lioresal] 20 mg PO BID 12/29/15 [History] Aspirin [Halfprin] 81 mg PO DAILY 01/15/16 [History] Carvedilol [Coreg] 3.125 mg PO BID 01/15/16 [History] Escitalopram [Lexapro] 20 mg PO BEDTIME 01/15/16 [History] atorvaSTATin Calcium [Atorvastatin Calcium] 80 mg PO BEDTIME 01/15/16 [History] Cholecalciferol (Vitamin D3) [Vitamin D3] 5,000 units PO BEDTIME 11/05/17 [ History] Acetaminophen [Tylenol Extra Strength] 1,000 mg PO Q6H PRN 02/16/18 [History] Prednisone [IMW: predniSONE] 40 mg PO DAILY PRN 07/05/18 [History] Omeprazole 20 mg PO DAILY 07/11/18 [History] Cyanocobalamin (Vitamin B12) [Vitamin B12] 1,000 mcg PO DAILY 11/09/18 [History] predniSONE [Prednisone] 40 mg PO DAILY #5 tablet 11/11/18 [Rx] Referrals: Arnulfo Manzano MD [Primary Care Provider] - (See Dr. Manzano as needed) - Discharge Summary/Plan Comment DC Time >30 min.: No - General Info Date of Service: 11/11/18 Admission Dx/Problem (Free Text: weakness Functional Status: Reports: Pain Controlled, Tolerating Diet, Ambulating, Urinating - Review of Systems General: Reports: Weakness, Fatigue HEENT: Denies: Ear Pain, Sinus Congestion, Sore Throat Pulmonary: Denies: Shortness of Breath, Cough Cardiovascular: Denies: Chest Pain, Edema, Lightheadedness Gastrointestinal: Denies: Abdominal Pain, Nausea, Vomiting Genitourinary: Reports: Incontinence Musculoskeletal: Reports: Other (weakness) Skin: Reports: No Symptoms Neurological: Reports: Headache, Weakness - Patient Data Vitals - Most Recent: Last Vital Signs Temp 96.7 F 11/11/18 11:49 Pulse 74 11/11/18 11:49 Resp 20 11/11/18 11:49 BP 122/62 11/11/18 11:49 Pulse Ox 98 11/11/18 11:49 Weight - Most Recent: 237 lb 4.8 oz I&O - Last 24 hours: Intake & Output 11/11/18 11/11/18 11/11/18 06:59 14:59 22:59 Intake Total 938 Balance 938 Med Orders - Current: Current Medications Discontinued Medications Acetaminophen (Tylenol) 650 mg PO Q4H PRN PRN Reason: Pain (Mild 1-3)/fever Acetaminophen (Tylenol Extra Strength) 1,000 mg PO ASDIRECTED PRN PRN Reason: Pain Acetaminophen (Tylenol Extra Strength) 1,000 mg PO Q6H PRN PRN Reason: Pain Aspirin (Halfprin) 81 mg PO DAILY [facility] Last Admin: 11/11/18 08:51 Dose: 81 mg Baclofen (Lioresal) 20 mg PO BID [facility] Last Admin: 11/11/18 08:49 Dose: Not Given Carvedilol (Coreg) 3.125 mg PO BID [facility] Last Admin: 11/11/18 08:48 Dose: 3.125 mg Citalopram Hydrobromide (Celexa) 40 mg PO BEDTIME [facility] Last Admin: 11/10/18 19:54 Dose: Not Given Enoxaparin Sodium (Lovenox) 30 mg SUBCUT Q24H [facility] Last Admin: 11/09/18 20:17 Dose: 30 mg Enoxaparin Sodium (Lovenox) 30 mg SUBCUT 2000 [facility] Last Admin: 11/10/18 19:12 Dose: Not Given Lactated Ringer's (Ringers, Lactated) 1,000 mls @ 100 mls/hr IV ASDIRECTED [facility] Last Admin: 11/11/18 00:00 Dose: 100 mls/hr Methylprednisolone Sodium Succinate (Solu-Medrol) 125 mg IVPUSH NOW ONE Stop: 11/11/18 08:37 Last Admin: 11/11/18 08:51 Dose: 125 mg Ptom Baclofen 20 (Mg) 20 mg PO BID [facility] Last Admin: 11/11/18 08:48 Dose: 20 mg Ptom (Escitalopram 20 Mg) 20 mg PO BEDTIME [facility] Pantoprazole Sodium (Protonix) 40 mg PO DAILY@0700 [facility] Last Admin: 11/11/18 06:38 Dose: Not Given - Exam General: Reports: Alert, Oriented HEENT: Reports: Mucous Membr. Moist/[place] Neck: Reports: Supple Lungs: Reports: Clear to Auscultation, Normal Respiratory Effort Cardiovascular: Reports: Regular Rate, Regular Rhythm GI/Abdominal Exam: Normal Bowel Sounds, Soft, Non-Tender Extremities: No Pedal Edema, Other (weakness chronically in arms and legs) Skin: Reports: Warm, Dry Neurological: Reports: No New Focal Deficit
== END 2018-11-11 13:50 | disposition home health service (06) ==
LOC: UNDOADMIN 16:54 → CC.MS 16:54 → INTOOBSV 18:34
PROVIDERS: ADMIT Nurse Practitioner Family; ATTEND Family Medicine
DX: G35 Multiple sclerosis (principal); H53.2 Diplopia; F17.210 Nicotine dependence, cigarettes, uncomplicated; I25.10 Atherosclerotic heart disease of native coronary artery without angina pectoris; K21.9 Gastro-esophageal reflux disease without esophagitis; Z86.79 Personal history of other diseases of the circulatory system; Z79.82 Long term (current) use of aspirin; Z79.899 Other long term (current) drug therapy
CPT/HCPCS: 36415; 70450; 80048; 80053; 81001; 85025; 86140; 96361; 96372; 96374; 97116-GP; 97162-GP; A9270-GY; G0378; J1650; J2930; J7120

== ENCOUNTER 2018-11-24 17:08 | Inpatient (IN) | payer MEDICARE, OTHER ==
[2018-11-24 17:45] LABS: CHLORIDE,CL 104 mEq/L (98-106); SODIUM,NA 140 mEq/L (136-145)
[2018-11-24] MEDS ORDERED: Iopamidol 755 Mg/ML 100 ML Bottle IVPUSH ONE (18:25)
--- NOTE | 2018-11-24 18:34 | EDM.PDOC ---
ED HPI GENERAL MEDICAL PROBLEM - General Chief Complaint: General Stated Complaint: cough, SOB, diarrhea Time Seen by Provider: 11/24/18 17:41 Source of Information: Reports: Patient, Family History Limitations: Reports: No Limitations - History of Present Illness INITIAL COMMENTS - FREE TEXT/NARRATIVE: Arash is a 63 yo male with known history of MS who is brought into the ED via [facility] with concerns of aspirating. who was present states the last few days he has been getting weaker again. She states today he has been coughing a lot and is concerned that he has aspirated. She states the cough is worsening. She states care givers are present in the home as well. She has also noticed he has been having some diarrhea today. Admits he has had 3-4 incontinent stools today. She has found it difficult to care for him. - Related Data Allergies Allergy/AdvReac Type Severity Reaction Status Date / Time red dye Allergy Change Verified 11/24/18 17:13 Mental Status Home Meds: Home Meds Baclofen [Lioresal] 20 mg PO BID 12/29/15 [History] Aspirin [Halfprin] 81 mg PO DAILY 01/15/16 [History] Carvedilol [Coreg] 3.125 mg PO BID 01/15/16 [History] Escitalopram [Lexapro] 20 mg PO BEDTIME 01/15/16 [History] atorvaSTATin Calcium [Atorvastatin Calcium] 80 mg PO BEDTIME 01/15/16 [History] Cholecalciferol (Vitamin D3) [Vitamin D3] 5,000 units PO DAILY 11/05/17 [History ] Acetaminophen [Tylenol Extra Strength] 1,000 mg PO Q6H PRN 02/16/18 [History] Prednisone [IMW: predniSONE] 40 mg PO DAILY PRN 07/05/18 [History] Omeprazole 20 mg PO DAILY 07/11/18 [History] Cyanocobalamin (Vitamin B12) [Vitamin B12] 1,000 mcg PO DAILY 11/09/18 [History] Past Medical History HEENT History: Reports: Impaired Vision Other HEENT History: GLASSES Cardiovascular History: Reports: CT, Stents Respiratory History: Reports: None Genitourinary History: Reports: Urinary Incontinence, UTI, Recurrent Other Musculoskeletal History: MS Neurological History: Reports: MS Psychiatric History: Reports: Depression - Past Surgical History HEENT Surgical History: Reports: Other (See Below) Other HEENT Surgeries/Procedures: brain surgery, drained 2 rosario holes GI Surgical History: Reports: Hernia, Inguinal Male Surgical History: Reports: Suprapubic Catheter Placement, TURP- Transurethral Resection of Prostate, Vasectomy Social & Family History - Family History Family Medical History: Noncontributory - Tobacco Use Smoking Status *Q: Never Smoker Second Hand Smoke Exposure: No - Caffeine Use Caffeine Use: Reports: Coffee ED ROS GENERAL - Review of Systems Review Of Systems: See Below Constitutional: Reports: Weakness. Denies: Fever, Chills HEENT: Reports: Rhinitis. Denies: Throat Pain Respiratory: Reports: Shortness of Breath, Cough Cardiovascular: Reports: No Symptoms GI/Abdominal: Reports: Diarrhea, Nausea. Denies: Bloody Stool, Constipation, Vomiting : Reports: No Symptoms Skin: Reports: No Symptoms Neurological: Reports: Difficulty Walking, Weakness. Denies: Headache, Change in Speech Psychiatric: Reports: No Symptoms ED EXAM, GENERAL - Physical Exam Exam: See Below Exam Limited By: No Limitations General Appearance: Alert, No Apparent Distress, Lethargic Ears: Normal External Exam, Normal Canal, Hearing Grossly Normal, Normal TMs Nose: Normal Inspection, Normal Mucosa, No Blood Throat/Mouth: Normal Inspection, Normal Lips, Normal Oropharynx, No Airway Compromise Head: Atraumatic, Normocephalic Neck: Normal Inspection, Supple Respiratory/Chest: No Respiratory Distress, Lungs Clear, Normal Breath Sounds, No Accessory Muscle Use Cardiovascular: Regular Rate, Rhythm, No Murmur GI/Abdominal: Normal Bowel Sounds, Soft, Non-Tender, No Organomegaly, No Distention Extremities: Normal Inspection, No Pedal Edema Neurological: Alert, Oriented, Abnormal Gait (unable to ambulate) Psychiatric: Normal Affect, Normal Mood Skin Exam: Warm, Dry, Intact, Normal Color, No Rash Course - Vital Signs Last Recorded V/S: Last Vital Signs Temp 98.4 F 11/24/18 17:10 Pulse 75 11/24/18 17:10 Resp 20 11/24/18 17:10 BP 141/105 H 11/24/18 17:10 Pulse Ox 94 L 11/24/18 17:10 - Orders/Labs/Meds Orders: Active Orders 24 hr Category Date Time Status Patient Status Manage Transfer [TRANSFER] Routine ADT 11/24/18 18:19 Ordered Chest 1V Frontal [CR] Stat Exams 11/24/18 17:18 Taken CULTURE BLOOD [BC] Routine Lab 11/24/18 18:18 Received CULTURE BLOOD [BC] Routine Lab 11/24/18 18:29 Received UA RFX EMANUEL AND CULT IF INDIC [URIN] Stat Lab 11/24/18 17:18 Ordered Resuscitation Status Routine Resus Stat 11/24/18 18:21 Ordered Labs: Laboratory Tests 11/24/18 11/24/18 11/24/18 Range/Units 17:18 17:18 17:18 WBC 22.0 H* (5.0-10.0) 10^3/uL RBC 5.22 (4.50-6.00) 10^6/uL Hgb 16.1 (14.0-18.0) g/dL Hct 47.4 (40.0-54.0) % MCV 90.8 (82.0-94.0) fL MCH 30.8 (27.0-32.0) pg MCHC 34.0 (33.0-38.0) g/dL RDW Coeff of Slava 14.5 (11.0-15.0) % Plt Count 295 (150-400) 10^3/uL Neut % (Auto) Billing And Quality Technician Lymph % (Auto) Billing And Quality Technician [place] % (Auto) Billing And Quality Technician Eos % (Auto) Billing And Quality Technician Baso % (Auto) Billing And Quality Technician Neut # (Auto) Billing And Quality Technician Lymph # (Auto) Billing And Quality Technician [place] # (Auto) Billing And Quality Technician Eos # (Auto) Billing And Quality Technician Baso # (Auto) Billing And Quality Technician Add Manual Diff Yes Neutrophils % (Manual) 78 (35-85) % Band Neutrophils % 3 (0-5) % Lymphocytes % (Manual) 13 L (21-55) % Monocytes % (Manual) 4 (2-12) % Eosinophils % (Manual) 2 (0-5) % D-Dimer, Quantitative 0.85 H (0.00-0.50) Sodium 140 (136-145) mEq/L Potassium 3.6 (3.5-5.0) mEq/L Chloride 104 (98-106) mEq/L Carbon Dioxide 26 (21-32) mmol/L BUN 13 (7-18) mg/dL Creatinine 0.9 (0.7-1.3) mg/dL Est Cr Clr Drug Dosing 94.60 mL/min Estimated GFR (MDRD) > 60 (>=60) mL/min Glucose 136 H D (75-99) mg/dL Calcium 9.0 (8.4-10.1) mg/dL Total Bilirubin 1.5 H (0.0-1.0) mg/dL AST 17 (15-37) U/L ALT 43 (12-78) U/L Alkaline Phosphatase 117 H (46-116) U/L Creatine Kinase 28 L (35-232) U/L Troponin I < 0.017 (0.00-0.06) ng/mL C-Reactive Protein 1.8 H (0.2-0.8) mg/dL Total Protein 6.8 (6.4-8.2) g/dL Albumin 3.0 L (3.4-5.0) g/dL Meds: Medications Discontinued Medications Generic Name Dose Route Start Last Admin Trade Name Freq PRN Reason Stop Dose Admin Iopamidol 100 ml 11/24/18 18:25 Isovue-370 (76%) IVPUSH 11/24/18 18:26 ONETIME ONE Departure - Departure Time of Disposition: 18:44 Disposition: Admitted As Inpatient 68 Clinical Impression: Exacerbation of multiple sclerosis, Shortness of breath, Weakness Leukocytosis Qualifiers: Leukocytosis type: other Qualified Code(s): D72.828 - Other elevated white blood cell count - Discharge Information Forms: ED Department Discharge - Problem List & Annotations (1) Exacerbation of multiple sclerosis SNOMED Code(s): 421318294 Code(s): G35 - MULTIPLE SCLEROSIS Status: Acute (2) Leukocytosis SNOMED Code(s): 673487566, 623504110 Code(s): D72.829 - ELEVATED WHITE BLOOD CELL COUNT, UNSPECIFIED Status: Acute Qualifiers: Leukocytosis type: other Qualified Code(s): D72.828 - Other elevated white blood cell count (3) Shortness of breath SNOMED Code(s): 998427056 Code(s): R06.02 - SHORTNESS OF BREATH Status: Acute (4) Weakness SNOMED Code(s): 14962332 Code(s): R53.1 - WEAKNESS Status: Acute Priority: High - Problem List Review Problem List Initiated/Reviewed/Updated: Yes - My Orders Last 24 Hours: My Active Orders 11/24/18 17:18 Chest 1V Frontal [CR] Stat UA RFX EMANUEL AND CULT IF INDIC [URIN] Stat 11/24/18 18:18 CULTURE BLOOD [BC] Routine 11/24/18 18:19 Patient Status Manage Transfer [TRANSFER] Routine 11/24/18 18:21 Resuscitation Status Routine 11/24/18 18:29 CULTURE BLOOD [BC] Routine - Assessment/Plan Admission H&P: Please use this note as an admission H&P Last 24 Hours: My Active Orders 11/24/18 17:18 Chest 1V Frontal [CR] Stat UA RFX EMANUEL AND CULT IF INDIC [URIN] Stat 11/24/18 18:18 CULTURE BLOOD [BC] Routine 11/24/18 18:19 Patient Status Manage Transfer [TRANSFER] Routine 11/24/18 18:21 Resuscitation Status Routine 11/24/18 18:29 CULTURE BLOOD [BC] Routine Plan: Will admit to Dr. Manzano's services under acute care. Dr. Manzano alerted. Blood cultures pending. IV antibiotics initiated. Will give IV fluids as well. UA is pending. Arash and both verbalized understanding.
[2018-11-24] MEDS ORDERED: Albuterol/Ipratropium 3.0-0.5 MG/3 ML Neb Soln NEB PRN (19:11)
[2018-11-24] MEDS ORDERED: cefTRIAXone 1 GM Vial IVPUSH SCH (19:11)
[2018-11-24] MEDS ORDERED: Azithromycin 500 MG in Sodium Chloride 0.9% 250 ML IV SCH (19:11)
[2018-11-24] MEDS ORDERED: Acetaminophen 325 MG Tab PO PRN (19:11)
[2018-11-24] MEDS: Sodium Chloride 0.9% 1,000 ML IV SCH (20:15)
[2018-11-24] MEDS ORDERED: diphenhydrAMINE 50 MG/ML SDV IVPUSH STA (20:16)
[2018-11-24] MEDS: methylPREDNISolone Sodium Succinate 125 MG/2 ML SDV IVPUSH SCH (20:20)
[2018-11-24] MEDS: Citalopram 10 MG Tab PO SCH (20:20)
[2018-11-24] MEDS: Carvedilol 3.125 MG Tab PO SCH (20:20)
[2018-11-24] MEDS: atorvaSTATin 20 MG Tab PO SCH (20:21)
[2018-11-24] MEDS: Baclofen 10 MG Tab PO SCH (20:21)
[2018-11-25] MEDS: Sodium Chloride 0.9% 1,000 ML IV SCH ×2 (06:11→16:16)
[2018-11-25] MEDS: methylPREDNISolone Sodium Succinate 125 MG/2 ML SDV IVPUSH SCH ×2 (06:12→16:14)
[2018-11-25 07:29] LABS: CHLORIDE,CL 106 mEq/L (98-106); SODIUM,NA 143 mEq/L (136-145)
[2018-11-25] MEDS: Carvedilol 3.125 MG Tab PO SCH ×2 (07:31→20:00)
[2018-11-25] MEDS: Pantoprazole 40 MG Tab.CR PO SCH (07:32)
[2018-11-25] MEDS: Baclofen 10 MG Tab PO SCH ×2 (07:32→20:00)
[2018-11-25] MEDS: Cyanocobalamin (Vitamin B12) 1,000 MCG Tab PO SCH (07:32)
[2018-11-25] MEDS: Aspirin 81 MG Tab.EC PO SCH (07:32)
--- NOTE | 2018-11-25 09:14 | PCM.PN ---
- General Info Date of Service: 11/25/18 Admission Dx/Problem (Free Text): Aspiration Pneumonia Functional Status: Reports: Pain Controlled, Tolerating Diet, Ambulating, Urinating - Review of Systems General: Reports: Weakness, Fatigue. Denies: Fever HEENT: Reports: Post Nasal Drip, Rhinitis Pulmonary: Denies: Shortness of Breath, Cough, Sputum, Wheezing Cardiovascular: Denies: Chest Pain, Edema, Lightheadedness Gastrointestinal: Denies: Abdominal Pain, Nausea, Vomiting Genitourinary: Reports: No Symptoms Neurological: Reports: Weakness - Patient Data Vitals - Most Recent: Last Vital Signs Temp 97.7 F 11/25/18 08:00 Pulse 76 11/25/18 08:00 Resp 20 11/25/18 08:00 BP 125/67 11/25/18 08:00 Pulse Ox 98 11/25/18 08:00 Weight - Most Recent: 236 lb 11.2 oz I&O - Last 24 Hours: Intake & Output 11/24/18 11/25/18 11/25/18 22:59 06:59 14:59 Intake Total 993 Balance 993 Lab Results Last 24 Hours: Laboratory Results - last 24 hr 11/24/18 11/24/18 11/24/18 Range/Units 17:18 17:18 17:18 WBC 22.0 H* (5.0-10.0) 10^3/uL RBC 5.22 (4.50-6.00) 10^6/uL Hgb 16.1 (14.0-18.0) g/dL Hct 47.4 (40.0-54.0) % MCV 90.8 (82.0-94.0) fL MCH 30.8 (27.0-32.0) pg MCHC 34.0 (33.0-38.0) g/dL RDW Coeff of Slava 14.5 (11.0-15.0) % Plt Count 295 (150-400) 10^3/uL Neut % (Auto) Awning Finisher Lymph % (Auto) Awning Finisher Beckham % (Auto) Awning Finisher Eos % (Auto) Awning Finisher Baso % (Auto) Awning Finisher Neut # (Auto) Awning Finisher Lymph # (Auto) Awning Finisher [place] # (Auto) Awning Finisher Eos # (Auto) Awning Finisher Baso # (Auto) Awning Finisher Add Manual Diff Yes Neutrophils % (Manual) 78 (35-85) % Band Neutrophils % 3 (0-5) % Lymphocytes % (Manual) 13 L (21-55) % Monocytes % (Manual) 4 (2-12) % Eosinophils % (Manual) 2 (0-5) % Basophils % (Manual) (0-3) % D-Dimer, Quantitative 0.85 H (0.00-0.50) Sodium 140 (136-145) mEq/L Potassium 3.6 (3.5-5.0) mEq/L Chloride 104 (98-106) mEq/L Carbon Dioxide 26 (21-32) mmol/L BUN 13 (7-18) mg/dL Creatinine 0.9 (0.7-1.3) mg/dL Est Cr Clr Drug Dosing 94.60 mL/min Estimated GFR (MDRD) > 60 (>=60) mL/min Glucose 136 H D (75-99) mg/dL Calcium 9.0 (8.4-10.1) mg/dL Total Bilirubin 1.5 H (0.0-1.0) mg/dL AST 17 (15-37) U/L ALT 43 (12-78) U/L Alkaline Phosphatase 117 H (46-116) U/L Creatine Kinase 28 L (35-232) U/L Troponin I < 0.017 (0.00-0.06) ng/mL C-Reactive Protein 1.8 H (0.2-0.8) mg/dL Total Protein 6.8 (6.4-8.2) g/dL Albumin 3.0 L (3.4-5.0) g/dL Urine Color (YELLOW) Urine Appearance (CLEAR) Urine pH (4.5-8.0) Ur Specific [place] (1.003-1.020) Urine Protein (NEGATIVE) mg/dL Urine Glucose (UA) (NEGATIVE) mg/dL Urine Ketones (NEGATIVE) mg/dL Urine Occult Blood (NEGATIVE) Urine Nitrite (NEGATIVE) Urine Bilirubin (NEGATIVE) Urine Urobilinogen (0.2-1.0) EU/dL Ur Leukocyte Esterase (NEGATIVE) Urine RBC (0-5) /HPF Urine WBC (0-5) /HPF Ur Squamous Epith Cells (NOT SEEN) /HPF Urine Bacteria (NOT SEEN) /HPF Urine Mucus (NOT SEEN) /HPF 02/06/19 02/06/19 02/06/19 Range/Units 07:15 07:15 07:33 WBC 14.0 H (5.0-10.0) 10^3/uL RBC 4.84 (4.50-6.00) 10^6/uL Hgb 14.6 (14.0-18.0) g/dL Hct 44.3 (40.0-54.0) % MCV 91.5 (82.0-94.0) fL MCH 30.2 (27.0-32.0) pg MCHC 33.0 (33.0-38.0) g/dL RDW Coeff of Slava 14.5 (11.0-15.0) % Plt Count 280 (150-400) 10^3/uL Neut % (Auto) Lymph % (Auto) Beckham % (Auto) Eos % (Auto) Baso % (Auto) Neut # (Auto) Lymph # (Auto) Beckham # (Auto) Eos # (Auto) Baso # (Auto) Add Manual Diff Yes Neutrophils % (Manual) 91 H (35-85) % Band Neutrophils % 2 (0-5) % Lymphocytes % (Manual) 6 L (21-55) % Monocytes % (Manual) (2-12) % Eosinophils % (Manual) (0-5) % Basophils % (Manual) 1 (0-3) % D-Dimer, Quantitative (0.00-0.50) Sodium 143 (136-145) mEq/L Potassium 3.8 (3.5-5.0) mEq/L Chloride 106 (98-106) mEq/L Carbon Dioxide 28 (21-32) mmol/L BUN 13 (7-18) mg/dL Creatinine 1.0 (0.7-1.3) mg/dL Est Cr Clr Drug Dosing 85.14 mL/min Estimated GFR (MDRD) > 60 (>=60) mL/min Glucose 153 H (75-99) mg/dL Calcium 8.6 (8.4-10.1) mg/dL Total Bilirubin (0.0-1.0) mg/dL AST (15-37) U/L ALT (12-78) U/L Alkaline Phosphatase (46-116) U/L Creatine Kinase (35-232) U/L Troponin I (0.00-0.06) ng/mL C-Reactive Protein 3.6 H (0.2-0.8) mg/dL Total Protein (6.4-8.2) g/dL Albumin (3.4-5.0) g/dL Urine Color Yellow (YELLOW) Urine Appearance Clear (CLEAR) Urine pH 5.5 (4.5-8.0) Ur Specific [place] 1.015 (1.003-1.020) Urine Protein Negative (NEGATIVE) mg/dL Urine Glucose (UA) Negative (NEGATIVE) mg/dL Urine Ketones Negative (NEGATIVE) mg/dL Urine Occult Blood Trace-intact H (NEGATIVE) Urine Nitrite Negative (NEGATIVE) Urine Bilirubin Negative (NEGATIVE) Urine Urobilinogen 0.2 (0.2-1.0) EU/dL Ur Leukocyte Esterase Trace H (NEGATIVE) Urine RBC 0-5 (0-5) /HPF Urine WBC 5-10 H (0-5) /HPF Ur Squamous Epith Cells Rare (NOT SEEN) /HPF Urine Bacteria Occasional H (NOT SEEN) /HPF Urine Mucus Occasional H (NOT SEEN) /HPF Jarett Results Last 24 Hours: Microbiology 11/24/18 17:44 Influenza Type A Antigen Screen - Final Nasal, Unspecified NEGATIVE INFLUENZA A VIRUS AG Influenza Type B Antigen Screen - Final NEGATIVE INFLUENZA B VIRUS AG Med Orders - Current: Current Medications Acetaminophen (Tylenol) 650 mg PO Q4H PRN PRN Reason: Pain (Mild 1-3)/fever Albuterol/Ipratropium (Duoneb 3.0-0.5 Mg/3 Ml) 3 ml NEB Q4H PRN PRN Reason: Shortness Of Breath/wheezing Aspirin (Halfprin) 81 mg PO DAILY [facility] Last Admin: 11/25/18 07:32 Dose: 81 mg Atorvastatin Calcium (Lipitor) 80 mg PO BEDTIME [facility] Last Admin: 11/24/18 20:21 Dose: 80 mg Baclofen (Lioresal) 20 mg PO BID [facility] Last Admin: 11/25/18 07:32 Dose: 20 mg Carvedilol (Coreg) 3.125 mg PO BID [facility] Last Admin: 11/25/18 07:31 Dose: 3.125 mg Ceftriaxone Sodium (Rocephin) 1 gm IVPUSH 1999 [facility] Citalopram Hydrobromide (Celexa) 40 mg PO BEDTIME [facility] Last Admin: 11/24/18 20:20 Dose: 40 mg Cyanocobalamin (Vitamin B12) 1,000 mcg PO DAILY [facility] Last Admin: 11/25/18 07:32 Dose: 1,000 mcg Sodium Chloride (Normal Saline) 1,000 mls @ 100 mls/hr IV ASDIRECTED [facility] Last Admin: 11/25/18 06:11 Dose: 100 mls/hr Azithromycin 500 mg/ Sodium (Chloride) 250 mls @ 250 mls/hr IV 2000 [facility] Methylprednisolone Sodium Succinate (Solu-Medrol) 62.5 mg IVPUSH Q12H [facility] Last Admin: 11/25/18 06:12 Dose: 62.5 mg Pantoprazole Sodium (Protonix) 40 mg PO DAILY [facility] Last Admin: 11/25/18 07:32 Dose: 40 mg Discontinued Medications Atorvastatin Calcium (Lipitor) 80 mg PO BEDTIME [facility] Ceftriaxone Sodium (Rocephin) 1 gm IVPUSH Q24H [facility] Last Admin: 11/24/18 20:22 Dose: 1 gm Diphenhydramine HCl (Benadryl) 25 mg IVPUSH ONETIME STA Stop: 11/24/18 20:17 Last Admin: 11/24/18 20:37 Dose: 25 mg Azithromycin 500 mg/ Sodium (Chloride) 250 mls @ 250 mls/hr IV Q24H [facility] Last Admin: 11/24/18 20:37 Dose: 250 mls/hr Iopamidol (Isovue-370 (76%)) 100 ml IVPUSH ONETIME ONE Stop: 11/24/18 18:26 Last Admin: 11/24/18 19:15 Dose: 100 ml - Exam General: Alert, Oriented HEENT: Mucous Membr. Moist/[place] Neck: Supple Lungs: Clear to Auscultation, Normal Respiratory Effort Cardiovascular: Regular Rate, Regular Rhythm GI/Abdominal Exam: Normal Bowel Sounds, Soft, Non-Tender Extremities: Normal Inspection, No Pedal Edema Skin: Warm, Dry Neurological: No New Focal Deficit - Problem List & Annotations (1) Aspiration pneumonia SNOMED Code(s): 097363446 Code(s): J69.0 - PNEUMONITIS DUE TO INHALATION OF FOOD AND VOMIT Status: Acute Priority: High Current Visit: Yes (2) Weakness SNOMED Code(s): 80467624 Code(s): R53.1 - WEAKNESS Status: Acute Priority: High Current Visit: Yes (3) Multiple sclerosis SNOMED Code(s): 31899487 Code(s): G35 - MULTIPLE SCLEROSIS Status: Chronic Priority: High Current Visit: Yes - Problem List Review Problem List Initiated/Reviewed/Updated: Yes - My Orders Last 24 Hours: My Active Orders 11/25/18 08:30 Consult to Physical Therapy [PT Evaluation and Treatment] [CONS] Routine - Assessment Assessment:: Aspiration Pneumonia History of MS - Plan Plan:: Patient if "feeling great today". He states he had a coughing spell yesterday, no mucous plug. Denies feeling short of breath. Has not had further cough. Denies any dysphagia or ever having issues with swallowing. He states he had been feeling very tired as of late and got a good night sleep last night and is feeling good. WBC was elevated at 22, improved to 14. CRP increased to 3.6. Negative influenza screen. UA shows few bacteria. Will continue with IV antibiotics. Physical Therapy for strengthening. Possibly home tomorrow.
[2018-11-25] MEDS ORDERED: atorvaSTATin 20 MG Tab PO SCH (20:00)
[2018-11-25] MEDS: Citalopram 10 MG Tab PO SCH (20:00)
[2018-11-25] MEDS: atorvaSTATin 20 MG Tab PO SCH (20:00)
[2018-11-25] MEDS ORDERED: Azithromycin 500 MG in Sodium Chloride 0.9% 250 ML IV SCH (20:00)
[2018-11-25] MEDS ORDERED: cefTRIAXone 1 GM Vial IVPUSH SCH (20:00)
[2018-11-26] MEDS: Sodium Chloride 0.9% 1,000 ML IV SCH (03:29)
[2018-11-26] MEDS: Carvedilol 3.125 MG Tab PO SCH (07:14)
[2018-11-26] MEDS: Aspirin 81 MG Tab.EC PO SCH (07:15)
[2018-11-26] MEDS: Pantoprazole 40 MG Tab.CR PO SCH (07:15)
[2018-11-26] MEDS: Cyanocobalamin (Vitamin B12) 1,000 MCG Tab PO SCH (07:15)
[2018-11-26] MEDS: Baclofen 10 MG Tab PO SCH (07:15)
[2018-11-26] MEDS: methylPREDNISolone Sodium Succinate 125 MG/2 ML SDV IVPUSH SCH ×2 (07:16→15:20)
[2018-11-26 07:53] LABS: CHLORIDE,CL 109 mEq/L (98-106); SODIUM,NA 144 mEq/L (136-145)
[2018-11-26 11:54] VITALS: BP 132/91
--- NOTE | 2018-11-26 16:46 | PCM.DCSUM1 ---
Discharge Summary - Hospital Course Free Text/Narrative:: Arash presented to ER per [facility] with concerns of aspiration. He had been coughing more as of late, he relates had a significant coughing spell and she was worried he was choking. Patient admits he has been feeling more weak and tired as of late, has not been sleeping well due to remodeling going on in their home. He had been having issues with diarrhea as of late as well. Labs in the ER did show elevation of his WBC at 22, CRP mildly elevated. Chest xray showed concern for RLL pneumonia. Admitted and started on IV Rocephin and Zithromax, steroids. Diagnosis: Stroke: No Modified [place] Scale: No Symptoms at All Modified [place] Scale Score: 0 - Discharge Data Discharge Date: 11/26/18 Discharge Disposition: Home, Self-Care 01 Condition: Good - Discharge Diagnosis/Problem(s) (1) Aspiration pneumonia SNOMED Code(s): 512082263 ICD Code: J69.0 - PNEUMONITIS DUE TO INHALATION OF FOOD AND VOMIT Status: Acute Priority: High Current Visit: Yes Qualifiers: Laterality: right Lung location: lower lobe of lung (2) Weakness SNOMED Code(s): 81507429 ICD Code: R53.1 - WEAKNESS Status: Acute Priority: High Current Visit: Yes (3) Multiple sclerosis SNOMED Code(s): 37557102 ICD Code: G35 - MULTIPLE SCLEROSIS Status: Chronic Priority: High Current Visit: Yes - Patient Summary/Data Complications: none Consults: Consultations 11/25/18 08:30 Consult to Physical Therapy [PT Evaluation and Treatment] [CONS] Routine Hospital Course: Patient doing well. He admits to feeling much better. Denies much for cough. Strength is good, comparable to his norm. Lung sounds are clear. WBC had improved yesterday to 14, high today at 29.6, likely related to steroids. CRP is improved to 1.6. Is ambulating with his walker. Afebrile. Discharge home. Levaquin 500 mg daily for another week. Will need follow up chest xray with his return visit to Dr. Manzano in 2 weeks. - Patient Instructions Diet: Usual Diet as Tolerated Activity: As Tolerated - Discharge Plan *PRESCRIPTION DRUG MONITORING PROGRAM REVIEWED*: No *COPY OF PRESCRIPTION DRUG MONITORING REPORT IN PATIENT [place]: No Prescriptions/Med Rec: Levofloxacin [Levaquin] 500 mg PO DAILY #8 tablet Home Medications: Home Meds Baclofen [Lioresal] 20 mg PO BID 12/29/15 [History] Aspirin [Halfprin] 81 mg PO DAILY 01/15/16 [History] Carvedilol [Coreg] 3.125 mg PO BID 01/15/16 [History] Escitalopram [Lexapro] 20 mg PO BEDTIME 01/15/16 [History] atorvaSTATin Calcium [Atorvastatin Calcium] 80 mg PO BEDTIME 01/15/16 [History] Cholecalciferol (Vitamin D3) [Vitamin D3] 5,000 units PO DAILY 11/05/17 [History ] Acetaminophen [Tylenol Extra Strength] 1,000 mg PO Q6H PRN 02/16/18 [History] Prednisone [IMW: predniSONE] 40 mg PO DAILY PRN 07/05/18 [History] Omeprazole 20 mg PO DAILY 07/11/18 [History] Cyanocobalamin (Vitamin B12) [Vitamin B12] 1,000 mcg PO DAILY 11/09/18 [History] Levofloxacin [Levaquin] 500 mg PO DAILY #8 tablet 11/26/18 [Rx] Forms: ED Department Discharge Referrals: Arnulfo Manzano MD [ED Physician] - (Follow up with Dr. Manzano in 2 weeks. Chest xray prior to visit) - Discharge Summary/Plan Comment DC Time >30 min.: No - General Info Date of Service: 11/26/18 Admission Dx/Problem (Free Text: Aspiration Pneumonia Functional Status: Reports: Pain Controlled, Tolerating Diet, Ambulating - Review of Systems General: Reports: Weakness. Denies: Fever, Fatigue HEENT: Reports: No Symptoms Pulmonary: Denies: Shortness of Breath, Cough Cardiovascular: Denies: Chest Pain, Edema, Lightheadedness Gastrointestinal: Denies: Abdominal Pain, Nausea, Vomiting Genitourinary: Reports: Incontinence Musculoskeletal: Reports: Other (weakness due to MS) Skin: Reports: No Symptoms Neurological: Reports: Weakness - Patient Data Vitals - Most Recent: Last Vital Signs Temp 97.3 F 11/26/18 11:53 Pulse 79 11/26/18 11:53 Resp 18 11/26/18 11:53 BP 132/91 H 11/26/18 11:53 Pulse Ox 95 11/26/18 11:53 Weight - Most Recent: 236 lb 11.2 oz I&O - Last 24 hours: Intake & Output 11/26/18 11/26/18 11/26/18 06:59 14:59 22:59 Intake Total 1000 400 Balance 1000 400 Lab Results - Last 24 hrs: Laboratory Results - last 24 hr 11/26/18 11/26/18 Range/Units 07:45 07:45 WBC 29.6 H* (5.0-10.0) 10^3/uL RBC 4.51 (4.50-6.00) 10^6/uL Hgb 13.8 L (14.0-18.0) g/dL Hct 41.6 (40.0-54.0) % MCV 92.2 (82.0-94.0) fL MCH 30.6 (27.0-32.0) pg MCHC 33.2 (33.0-38.0) g/dL RDW Coeff of Slava 14.4 (11.0-15.0) % Plt Count 315 (150-400) 10^3/uL Add Manual Diff Yes Neutrophils % (Manual) 93 H (35-85) % Lymphocytes % (Manual) 3 L (21-55) % Monocytes % (Manual) 4 (2-12) % Sodium 144 (136-145) mEq/L Potassium 3.5 (3.5-5.0) mEq/L Chloride 109 H (98-106) mEq/L Carbon Dioxide 27 (21-32) mmol/L BUN 13 (7-18) mg/dL Creatinine 1.0 (0.7-1.3) mg/dL Est Cr Clr Drug Dosing 85.14 mL/min Estimated GFR (MDRD) > 60 (>=60) mL/min Glucose 180 H (75-99) mg/dL Calcium 8.6 (8.4-10.1) mg/dL C-Reactive Protein 1.6 H (0.2-0.8) mg/dL EMANUEL Results - Last 24 hrs: Microbiology 11/25/18 07:33 Urine Culture - Preliminary Urine, Voided NO GROWTH AFTER 1 DAY 11/24/18 18:18 Aerobic Blood Culture - Preliminary Blood NO GROWTH AFTER 1 DAY Anaerobic Blood Culture - Preliminary NO GROWTH AFTER 1 DAY 11/24/18 18:29 Aerobic Blood Culture - Preliminary Blood NO GROWTH AFTER 1 DAY Anaerobic Blood Culture - Preliminary NO GROWTH AFTER 1 DAY Med Orders - Current: Current Medications Acetaminophen (Tylenol) 650 mg PO Q4H PRN PRN Reason: Pain (Mild 1-3)/fever Albuterol/Ipratropium (Duoneb 3.0-0.5 Mg/3 Ml) 3 ml NEB Q4H PRN PRN Reason: Shortness Of Breath/wheezing Aspirin (Halfprin) 81 mg PO DAILY ON LICENSE OF [facility] Last Admin: 11/26/18 07:15 Dose: 81 mg Atorvastatin Calcium (Lipitor) 80 mg PO BEDTIME ON LICENSE OF [facility] Last Admin: 11/25/18 20:00 Dose: 80 mg Baclofen (Lioresal) 20 mg PO BID ON LICENSE OF [facility] Last Admin: 11/26/18 07:15 Dose: 20 mg Carvedilol (Coreg) 3.125 mg PO BID ON LICENSE OF [facility] Last Admin: 11/26/18 07:14 Dose: 3.125 mg Ceftriaxone Sodium (Rocephin) 1 gm IVPUSH 1999 ON LICENSE OF [facility] Last Admin: 11/25/18 20:02 Dose: 1 gm Citalopram Hydrobromide (Celexa) 40 mg PO BEDTIME ON LICENSE OF [facility] Last Admin: 11/25/18 20:00 Dose: 40 mg Cyanocobalamin (Vitamin B12) 1,000 mcg PO DAILY ON LICENSE OF [facility] Last Admin: 11/26/18 07:15 Dose: 1,000 mcg Sodium Chloride (Normal Saline) 1,000 mls @ 100 mls/hr IV ASDIRECTED ON LICENSE OF [facility] Last Admin: 11/26/18 03:29 Dose: 100 mls/hr Azithromycin 500 mg/ Sodium (Chloride) 250 mls @ 250 mls/hr IV 1999 ON LICENSE OF [facility] Last Admin: 11/25/18 20:06 Dose: 250 mls/hr Methylprednisolone Sodium Succinate (Solu-Medrol) 62.5 mg IVPUSH 0800,1600 ON LICENSE OF [facility] Last Admin: 11/26/18 15:20 Dose: 62.5 mg Pantoprazole Sodium (Protonix) 40 mg PO DAILY ON LICENSE OF [facility] Last Admin: 11/26/18 07:15 Dose: 40 mg Discontinued Medications Atorvastatin Calcium (Lipitor) 80 mg PO BEDTIME ON LICENSE OF [facility] Ceftriaxone Sodium (Rocephin) 1 gm IVPUSH Q24H ON LICENSE OF [facility] Last Admin: 11/24/18 20:22 Dose: 1 gm Diphenhydramine HCl (Benadryl) 25 mg IVPUSH ONETIME STA Stop: 11/24/18 20:17 Last Admin: 11/24/18 20:37 Dose: 25 mg Azithromycin 500 mg/ Sodium (Chloride) 250 mls @ 250 mls/hr IV Q24H ON LICENSE OF [facility] Last Admin: 11/24/18 20:37 Dose: 250 mls/hr Iopamidol (Isovue-370 (76%)) 100 ml IVPUSH ONETIME ONE Stop: 11/24/18 18:26 Last Admin: 11/24/18 19:15 Dose: 100 ml Methylprednisolone Sodium Succinate (Solu-Medrol) 62.5 mg IVPUSH Q12H ON LICENSE OF [facility] Last Admin: 11/25/18 06:12 Dose: 62.5 mg - Exam General: Reports: Alert, Oriented HEENT: Reports: Mucous Membr. Moist/[place]ck: Reports: Supple Lungs: Reports: Clear to Auscultation, Normal Respiratory Effort Cardiovascular: Reports: Regular Rate, Regular Rhythm GI/Abdominal Exam: Normal Bowel Sounds, Soft, Non-Tender Extremities: Normal Inspection, No Pedal Edema Skin: Reports: Warm, Dry Neurological: Reports: No New Focal Deficit
== END 2018-11-26 17:30 | disposition home or self-care (01) | DRG 179 ==
LOC: CC.ED 17:08 → CC.MS 18:21 → UNDOADMIN 19:09
PROVIDERS: ADMIT Physician Assistant Medical; ATTEND Family Medicine
DX: R06.02 Shortness of breath (principal); R19.7 Diarrhea, unspecified; R05 Cough; R26.2 Difficulty in walking, not elsewhere classified; D72.828 Other elevated white blood cell count; R53.1 Weakness; J69.0 Pneumonitis due to inhalation of food and vomit; G35 Multiple sclerosis; R32 Unspecified urinary incontinence; F32.9 Major depressive disorder, single episode, unspecified; H54.7 Unspecified visual loss; T38.0X5A Adverse effect of glucocorticoids and synthetic analogues, initial encounter; D72.829 Elevated white blood cell count, unspecified; I25.2 Old myocardial infarction; Z93.50 Unspecified cystostomy status; Z91.048 Other nonmedicinal substance allergy status; Z87.440 Personal history of urinary (tract) infections; Z95.5 Presence of coronary angioplasty implant and graft; Z79.82 Long term (current) use of aspirin; Z79.899 Other long term (current) drug therapy; Z79.52 Long term (current) use of systemic steroids
CPT/HCPCS: 36415; 71045; 71275; 80048; 80053; 81001; 82550; 84484; 85025; 85379; 86140; 87040; 87086; 87804; 97161-GP; 99285; A9270-GY; J0456; J0696; J1200; J2930; J7030; J7050; Q9967

== ENCOUNTER 2023-01-13 12:41 | Inpatient (IN) | payer MEDICARE, BC ==
[2023-01-13 13:41] LABS: CHLORIDE,CL 101 mEq/L (98-106); SODIUM,NA 140 mEq/L (136-145)
[2023-01-13 13:42] LABS: ESTIMATED GFR 75 mL/min (>=60)
[2023-01-13] MEDS ORDERED: Sodium Chloride 0.9% 1,000 ML IV ONE (13:51)
[2023-01-13] MEDS ORDERED: cefTRIAXone 2 GM Vial IVPUSH ONE (14:06)
[2023-01-13] MEDS ORDERED: Iopamidol 755 Mg/ML 100 ML Bottle IVPUSH ONE (14:08)
[2023-01-13] MEDS: Sodium Chloride 0.9% 1,000 ML IV SCH ×2 (15:48→23:52)
[2023-01-13] MEDS ORDERED: Ondansetron 4 MG/2 ML SDV IV PRN (16:11)
[2023-01-13] MEDS ORDERED: Ondansetron 4 MG Tab.DIS PO PRN (16:11)
[2023-01-13] MEDS: Levofloxacin/Dextrose 5%-Water 750 MG in Premix Bag 1 BAG IV SCH (18:30)
[2023-01-13] MEDS: Enoxaparin 40 MG/0.4 ML Syringe SUBCUT SCH (19:06)
[2023-01-14] MEDS: Sodium Chloride 0.9% 1,000 ML IV SCH ×2 (07:46→15:25)
[2023-01-14] MEDS ORDERED: Pantoprazole 40 MG Tab.CR PO SCH (08:30)
[2023-01-14] MEDS: Potassium Chloride 10 MEQ Tab.ER PO SCH (08:51)
[2023-01-14] MEDS: Cyanocobalamin (Vitamin B12) 1,000 MCG Tab PO SCH (08:51)
[2023-01-14] MEDS: Cholecalciferol (Vitamin D3) 5,000 UNIT Tab PO SCH (08:51)
[2023-01-14] MEDS: Baclofen 10 MG Tab PO SCH ×2 (08:52→19:02)
[2023-01-14] MEDS: Carvedilol 3.125 MG Tab PO SCH ×2 (08:52→17:13)
[2023-01-14] MEDS: Aspirin 81 MG Tab.EC PO SCH (08:52)
[2023-01-14] MEDS: Levofloxacin/Dextrose 5%-Water 750 MG in Premix Bag 1 BAG IV SCH (15:26)
[2023-01-14] MEDS: metFORMIN 500 MG Tab PO SCH (17:13)
[2023-01-14] MEDS: atorvaSTATin 20 MG Tab PO SCH (19:02)
[2023-01-14] MEDS: Escitalopram 10 MG Tab PO SCH (19:03)
[2023-01-14] MEDS: Enoxaparin 40 MG/0.4 ML Syringe SUBCUT SCH (19:03)
[2023-01-14] MEDS: Acetaminophen 325 MG Tab PO PRN (19:15)
[2023-01-15] MEDS: Sodium Chloride 0.9% 1,000 ML IV SCH (01:18)
[2023-01-15] MEDS: Pantoprazole 40 MG Tab.CR PO SCH (06:25)
[2023-01-15] MEDS: Baclofen 10 MG Tab PO SCH ×2 (07:23→19:30)
[2023-01-15] MEDS: Carvedilol 3.125 MG Tab PO SCH ×2 (07:24→17:34)
[2023-01-15] MEDS: metFORMIN 500 MG Tab PO SCH ×2 (07:24→17:34)
[2023-01-15] MEDS: Cyanocobalamin (Vitamin B12) 1,000 MCG Tab PO SCH (07:24)
[2023-01-15] MEDS: Cholecalciferol (Vitamin D3) 5,000 UNIT Tab PO SCH (07:24)
[2023-01-15] MEDS: Potassium Chloride 10 MEQ Tab.ER PO SCH (07:24)
[2023-01-15] MEDS: Aspirin 81 MG Tab.EC PO SCH (07:24)
[2023-01-15] MEDS: predniSONE 5 MG Tab PO SCH (07:24)
[2023-01-15] MEDS: Levofloxacin/Dextrose 5%-Water 750 MG in Premix Bag 1 BAG IV SCH (16:11)
[2023-01-15] MEDS: Acetaminophen 325 MG Tab PO PRN (19:30)
[2023-01-15] MEDS: Enoxaparin 40 MG/0.4 ML Syringe SUBCUT SCH (19:30)
[2023-01-15] MEDS: atorvaSTATin 20 MG Tab PO SCH (19:30)
[2023-01-15] MEDS: Escitalopram 10 MG Tab PO SCH (19:31)
[2023-01-16] MEDS: Pantoprazole 40 MG Tab.CR PO SCH (06:20)
[2023-01-16] MEDS: Potassium Chloride 10 MEQ Tab.ER PO SCH (07:46)
[2023-01-16] MEDS: Cyanocobalamin (Vitamin B12) 1,000 MCG Tab PO SCH (07:47)
[2023-01-16] MEDS: Baclofen 10 MG Tab PO SCH ×2 (07:47→20:29)
[2023-01-16] MEDS: Cholecalciferol (Vitamin D3) 5,000 UNIT Tab PO SCH (07:47)
[2023-01-16] MEDS: Aspirin 81 MG Tab.EC PO SCH (07:47)
[2023-01-16] MEDS: metFORMIN 500 MG Tab PO SCH ×2 (07:47→17:10)
[2023-01-16] MEDS: predniSONE 5 MG Tab PO SCH (07:48)
[2023-01-16] MEDS: Carvedilol 3.125 MG Tab PO SCH ×2 (07:48→17:10)
[2023-01-16] MEDS: Levofloxacin/Dextrose 5%-Water 750 MG in Premix Bag 1 BAG IV SCH (16:49)
[2023-01-16] MEDS: Enoxaparin 40 MG/0.4 ML Syringe SUBCUT SCH (20:28)
[2023-01-16] MEDS: Escitalopram 10 MG Tab PO SCH (20:29)
[2023-01-16] MEDS: atorvaSTATin 20 MG Tab PO SCH (20:29)
[2023-01-17] MEDS: Pantoprazole 40 MG Tab.CR PO SCH (06:06)
[2023-01-17] MEDS: Potassium Chloride 10 MEQ Tab.ER PO SCH (07:45)
[2023-01-17] MEDS: metFORMIN 500 MG Tab PO SCH (07:45)
[2023-01-17] MEDS: Aspirin 81 MG Tab.EC PO SCH (07:45)
[2023-01-17] MEDS: Cyanocobalamin (Vitamin B12) 1,000 MCG Tab PO SCH (07:46)
[2023-01-17] MEDS: Carvedilol 3.125 MG Tab PO SCH (07:46)
[2023-01-17] MEDS: predniSONE 5 MG Tab PO SCH (07:46)
[2023-01-17] MEDS: Cholecalciferol (Vitamin D3) 5,000 UNIT Tab PO SCH (07:46)
[2023-01-17] MEDS: Baclofen 10 MG Tab PO SCH (07:47)
[2023-01-17 11:55] VITALS: BP 157/83; PULSE 71
== END 2023-01-17 14:00 | disposition home or self-care (01) | DRG 689 ==
LOC: CC.ED 12:41 → CC.MS 15:43 → UNDOADMIN 16:08
PROVIDERS: ADMIT Nurse Practitioner Family; ATTEND Nurse Practitioner Family
DX: N39.0 Urinary tract infection, site not specified (principal); J18.9 Pneumonia, unspecified organism; N20.1 Calculus of ureter; N28.1 Cyst of kidney, acquired; D49.512 Neoplasm of unspecified behavior of left kidney; G35 Multiple sclerosis; H54.7 Unspecified visual loss; R32 Unspecified urinary incontinence; F32.A Depression, unspecified; Z20.822 Contact with and (suspected) exposure to COVID-19; Z88.8 Allergy status to other drugs, medicaments and biological substances; Z79.82 Long term (current) use of aspirin; Z87.891 Personal history of nicotine dependence; Z79.899 Other long term (current) drug therapy; I25.2 Old myocardial infarction; Z95.5 Presence of coronary angioplasty implant and graft
CPT/HCPCS: 36415; 51702; 71045; 71275; 74177; 74183; 80053; 81001; 83605; 83735; 85025; 85379; 86140; 87040; 87086; 87088; 87186; 87804; 96361; 96374; 97161-GP; 99223; 99232; 99233; 99239; 99285-25; A9270-GY; A9579; J0696; J1650; J1956; J7030; J7512; Q9967; U0002